=== PATIENT | female | born 1945 | race Caucasian/White ===

== ENCOUNTER → 2019-04-07 | Outpatient (CLI) | payer MEDICARE, OTHER, SELFPAY ==
--- NOTE | 2019-04-07 09:52 | CDU_ITS ---
Reason For Study: carotid stenosis Rt. Velocities/BP Lt. Velocities/BP Prox CCA 112.5/13.4 cm/sec. Prox CCA 111.1/21.7 cm/sec. Mid CCA 78.12/*19.4 cm/sec. Mid CCA 80.1/19.9 cm/sec. Dist CCA 52.6/14.2 cm/sec. Dist CCA 66.6/18.2 cm/sec. Prox ICA 57.0/16.4 cm/sec. Prox ICA 50.1/14.9 cm/sec. Mid ICA 91.8/29.2 cm/sec. Mid ICA 62.2/17.1 cm/sec. Dist ICA 119.7/26.4 cm/sec. Dist ICA 110.1/36.4 cm/sec. Rt. ICA/CCA = 119.7/112.5=1.1. Lt. ICA/CCA = 110.1/111.1=1.0. Prox ECA 55.9/7.6 cm/sec. Prox ECA 69.8/11.6 cm/sec. Rt. Vert. 74.8/19.5 cm/sec. Lt. Vert. 69.8/19.3 cm/sec. Right Extracranial There is no significant atherosclerotic plaque noted in the right common carotid artery. There is intimal thickening but no significant atherosclerotic plaque noted in the right internal carotid artery. The tortuous nature of the right internal carotid artery may result in flow velocities overestimating the degree of stenosis. There is no significant atherosclerotic plaque noted in the right external carotid artery. Antegrade flow is noted in the right vertebral artery. Left Extracranial There is no significant atherosclerotic plaque noted in the left common carotid artery. There is intimal thickening but no significant atherosclerotic plaque noted in the left internal carotid artery. The tortuous nature of the left internal carotid artery may result in flow velocities overestimating the degree of stenosis. There is no significant atherosclerotic plaque noted in the left external carotid artery. Antegrade flow is noted in the left vertebral artery. Procedure Carotid Duplex [id number]. The exam was diagnostic. Exam performed in department. Interpretation Summary Intimal thickening bilateral internal carotids with <50% stenosis. Tortuous bilateral internal carotids <50% stenosis bilateral external carotids Patent and antegrade vertebrals bilaterally with <50% stenosis Ordering Physician: Ruth Denise Referring Physician: Ruth Denise Performed By: Sophia Miller, HOSSEIN, RVT
--- NOTE | 2019-04-07 10:27 | BI_ITS ---
MAMMOGRAPHY - BILATERAL SCREENING REASON FOR EXAM: Female, 73 years old. Routine annual screening examination. PERTINENT HISTORY: Remote left excisional breast biopsies. TECHNIQUE: Digital bilateral breast danisha (3D mammographic acquisition) in the CC and MLO projections. 2-D mediolateral oblique (MLO) and craniocaudad (CC) views of both breasts were obtained. CAD: Full Field Digital Mammography with Computer Added Detection was performed. COMPARISON: Comparison is made with prior outside analog films dated January 19, 2018. FINDINGS: Breast Composition: The breasts are heterogeneously dense, which may obscure small masses. There are no dominant masses or suspicious calcifications. No other significant abnormalities are identified. There has been no significant change since the prior study. BI/SCREEN MAMM (CAD) W/DANISHA BILAT IMPRESSION: Stable bilateral screening mammogram. Yearly follow-up mammogram recommended. (A) ASSESSMENT CATEGORY: BIRADS Category 1: Negative. A letter regarding these results will be sent to the patient by the facility within 30 days. Approximately 10% of breast cancers are not detected by mammography. A normal mammogram should not delay biopsy of a clinically suspicious abnormality. [id number] Electronically Signed: Evangelist Bajwa, at 12:37 EDT , Service support ,
== END | disposition home or self-care (01) ==
PROVIDERS: Family Provider Family Medicine; PCP Family Medicine; Referring Provider Family Medicine; Visit Provider Family Medicine
DX: I65.23 Occlusion and stenosis of bilateral carotid arteries (principal); Z12.31 Encounter for screening mammogram for malignant neoplasm of breast
CPT/HCPCS: 77063; 77067; 93880

== ENCOUNTER → 2019-06-25 08:25 | Outpatient (CLI) | payer MEDICARE, OTHER, SELFPAY ==
[2019-06-25 11:05] LABS: Absolute Lymphocyte Count 2.28 X10^3/uL (0.83-4.51); Absolute Neutrophil Count 3.6 X10^3/uL (2.0-7.7); Basophil# 0.06 X10^3/uL; Basophil% 0.9 % (0-1); Eosinophil# 0.34 X10^3/uL; Eosinophils% 4.9 % (0-5); Hematocrit 44.6 % (37-47); Hemoglobin 14.5 g/dL (12.0-15.0); Lymphocyte # 2.28 X10^3/ul (4.0); Lymphocyte % 32.9 % (19-41); Mean Corp Hgb Conc 32.5 g/dL (32-36); Mean Corpuscular Hgb 30.6 pg (27.0-32.0); Mean Corpuscular Volume 94.1 fL (81-99); Mean Platelet Vol. 10.5 fl (6.2-12.0); Monocyte# 0.63 X10^3/uL; Monocyte% 9.1 % (0-10); NRBC Flagged by Analyzer 0 % (0-5); Neutrophil # 3.59 X10^3/uL (2.7-7.7); Neutrophil % 51.8 % (47-70); Platelet Count 251 K/mm3 (150-450); RBC Distribution Width CV 12.5 % (11.6-14.6); RBC Distribution Width SD 43.1 fl (35.1-43.9); Red Blood Count 4.74 M/mm3 (4.2-5.4); White Blood Count 6.9 K/mm3 (4.4-11.0)
[2019-06-25 11:15] LABS: ALB/GLOB Ratio 1.3 RATIO (0.9-2.4); AST(SGOT) 19 U/L (15-37); Alanine Aminotransfer ALT/SGPT 44 U/L (13-56); Albumin, Serum 4.1 g/dL (3.2-5.0); Alkaline Phosphatase 57 U/L (45-117); Anion Gap 5 (5-15); BUN 16 mg/dL (7-18); BUN/Creat Ratio 14.3 RATIO (10-20); Calcium,Total 8.9 mg/dL (8.5-10.1); Chloride 102 mmol/L (98-107); Cholesterol 200 mg/dL (200); Creatinine, Serum 1.12 mg/dL (0.55-1.02); EST Glomerular Filtration Rate 51 mL/min (>60); Est Glom Filt Rate - Afr Amer 61 mL/min (>60); Globulin 3.1 g/dL (2.2-4.2); Glucose 96 mg/dL (74-106); High Density Lipoprotein 73 mg/dL; Potassium 4.6 mmol/L (3.5-5.1); Protein, Total 7.2 g/dL (6.4-8.2); Sodium Level 134 mmol/L (136-145); Triglycerides 156 mg/dL; Very Low Density Lipoprotein 31 mg/dL (5-40)
== END ==
PROVIDERS: Family Provider Family Medicine; PCP Family Medicine; Visit Provider Family Medicine
DX: N18.3 Chronic kidney disease, stage 3 (moderate) (principal); E78.5 Hyperlipidemia, unspecified
CPT/HCPCS: 36415; 80053; 80061; 85025

== ENCOUNTER → 2019-07-08 08:23 | Outpatient (CLI) | payer MEDICARE, OTHER, SELFPAY ==
--- NOTE | 2019-07-08 08:46 | BD_ITS ---
STUDY: DUAL ENERGY X-RAY ABSORPTIOMETRY / DXA REASON FOR EXAM: Female, 73 years old. 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 COMPARISON: None. FINDINGS: Lumbar Spine (L1-L4): g/cm2 (0.903) / T-score (-2.3) / Z-score (-0.6) Findings are suggestive of osteopenia with a high fracture risk. Left Femur Total: g/cm2 (0.945) / T-score (-0.5) / Z-score (1.2) Left Femoral Neck: g/cm2 (0.917) / T-score (-0.9) / Z-score (1.0) Right Femur Total: g/cm2 (0.965) / T-score (-0.3) / Z-score (1.3) Right Femoral Neck: g/cm2 (0.944) / T-score (-0.7) / Z-score (1.2) BD/Dexa Bone Density Study IMPRESSION: The patient is considered osteopenic as outlined below according to World Donny Organization (WHO) criteria with a high fracture risk. Reference Information: The T-score is the number of standard deviations above or below the standard which is normal for young adults at their peak bone mineral density. The World Health Organization (WHO) interprets the T-scores as follows: Above -1 Normal bone density Between -1 and -2.5 Osteopenia Equal to / or below -2.5 Osteoporosis As a practical clinical guideline, osteopenia may be graded as follows: Mild -1 through -1.5 Moderate -1.6 through -2.0 Severe -2.1 through -2.4 The Z-score is the number of standard deviations above or below age-matched controls. A Z-score of less than -1.5 would be considered abnormal. References: 1. NIH Osteoporosis and Related Bone Diseases http://www.osteo.org 2. International Society for Clinical Densitometry http://www.iscd.org 3. National Osteoporosis Foundation http://www.nof.org Electronically Signed: Evangelist Bajwa, at 15:55 EST , Service support ,
--- NOTE | 2019-07-08 09:15 | RAD_ITS ---
STUDY: X-RAY - PELVIS AND RIGHT HIP REASON FOR EXAM: Female, 73 years old. right hip pain x 1 month, especially when lifting right leg -- NKI TECHNIQUE: 3 views of the pelvis and hip. COMPARISON: None. FINDINGS: There is a non-specific bowel gas pattern. Normal visualized soft tissue structures. There is narrowing with cortical sclerosis and osteophyte formation of the sacroiliac joint consistent with mild degenerative osteoarthritic changes. Normal bilateral superior and inferior pubic rami. Normal pubic symphysis. Normal bilateral ischial tuberosities. Normal visualized femoral head. There is a small osteoarthritic spur formation of the acetabular rim. There is mild articular joint space narrowing of the hip. RAD/HIP, UNI W/ Pelvis 2-3 Views IMPRESSION: Mild degenerative disease as described above. Electronically Signed: Dalila Minor MD at 0:53 EST , Service support ,
== END ==
PROVIDERS: Family Provider Family Medicine; PCP Family Medicine; Visit Provider Family Medicine
DX: M16.11 Unilateral primary osteoarthritis, right hip (principal); Z78.0 Asymptomatic menopausal state
CPT/HCPCS: 73502; 77080

== ENCOUNTER → 2019-12-21 10:30 | Outpatient (CLI) | payer MEDICARE, OTHER, SELFPAY ==
[2019-12-21 13:03] LABS: Anion Gap 7 (5-15); BUN 10 mg/dL (7-18); BUN/Creat Ratio 9.6 RATIO (10-20); Calcium,Total 9.9 mg/dL (8.5-10.1); Chloride 106 mmol/L (98-107); Creatinine, Serum 1.04 mg/dL (0.55-1.02); EST Glomerular Filtration Rate 55 mL/min (>60); Est Glom Filt Rate - Afr Amer 67 mL/min (>60); Glucose 113 mg/dL (74-106); Potassium 4.2 mmol/L (3.5-5.1); Sodium Level 138 mmol/L (136-145)
[2019-12-21 13:04] LABS: Thyroid Stim Hormone (TSH) 0.98 uIU/mL (0.358-3.74)
== END ==
PROVIDERS: PCP Family Medicine; Visit Provider Family Medicine
DX: N18.3 Chronic kidney disease, stage 3 (moderate) (principal); E03.9 Hypothyroidism, unspecified
CPT/HCPCS: 36415; 80048; 84443

== ENCOUNTER → 2020-06-16 08:48 | Outpatient (CLI) | payer MEDICARE, OTHER, SELFPAY ==
[2020-06-16 13:02] LABS: Absolute Lymphocyte Count 2.28 X10^3/uL (0.83-4.51); Absolute Neutrophil Count 4.3 X10^3/uL (2.0-7.7); Basophil# 0.06 X10^3/uL; Basophil% 0.8 % (0-1); Eosinophil# 0.32 X10^3/uL; Eosinophils% 4.1 % (0-5); Hematocrit 41.1 % (37-47); Hemoglobin 13.5 g/dL (12.0-15.0); Lymphocyte # 2.28 X10^3/ul (4.0); Lymphocyte % 29.3 % (19-41); Mean Corp Hgb Conc 32.8 g/dL (32-36); Mean Corpuscular Hgb 31.5 pg (27.0-32.0); Mean Corpuscular Volume 95.8 fL (81-99); Mean Platelet Vol. 10.4 fl (6.2-12.0); Monocyte# 0.81 X10^3/uL; Monocyte% 10.4 % (0-10); NRBC Flagged by Analyzer 0 % (0-5); Neutrophil # 4.27 X10^3/uL (2.7-7.7); Neutrophil % 54.9 % (47-70); Platelet Count 253 K/mm3 (150-450); RBC Distribution Width CV 12.6 % (11.6-14.6); RBC Distribution Width SD 44.3 fl (35.1-43.9); Red Blood Count 4.29 M/mm3 (4.2-5.4); White Blood Count 7.8 K/mm3 (4.4-11.0)
[2020-06-16 13:30] LABS: ALB/GLOB Ratio 1.3 RATIO (0.9-2.4); AST(SGOT) 23 U/L (15-37); Alanine Aminotransfer ALT/SGPT 45 U/L (13-56); Alkaline Phosphatase 64 U/L (45-117); Anion Gap 9 (5-15); BUN 15 mg/dL (7-18); BUN/Creat Ratio 14.2 RATIO (10-20); Chloride 101 mmol/L (98-107); Cholesterol 178 mg/dL (200); Creatinine, Serum 1.06 mg/dL (0.55-1.02); EST Glomerular Filtration Rate 54 mL/min (>60); Est Glom Filt Rate - Afr Amer 65 mL/min (>60); Glucose 86 mg/dL (74-106); High Density Lipoprotein 80 mg/dL; Potassium 4.5 mmol/L (3.5-5.1); Sodium Level 132 mmol/L (136-145); Triglycerides 155 mg/dL; Very Low Density Lipoprotein 31 mg/dL (5-40)
== END ==
PROVIDERS: PCP Family Medicine; Visit Provider Family Medicine
DX: N18.30 Chronic kidney disease, stage 3 unspecified (principal); E78.5 Hyperlipidemia, unspecified; M81.0 Age-related osteoporosis without current pathological fracture
CPT/HCPCS: 36415; 80053; 80061; 82306; 85025

== ENCOUNTER 2020-06-30 17:09 | Emergency (ER) | payer MEDICARE, OTHER, SELFPAY ==
[2020-06-30 17:10] VITALS: BP 158/82; PULSE 87; RESP 16; TEMP 36.8; O2SAT 99; BMI 27.6
--- NOTE | 2020-06-30 17:41 | CT_ITS ---
STUDY: CT BRAIN WITHOUT CONTRAST REASON FOR EXAM: Female, 74 years old. Vertebral RADIATION DOSAGE (If Supplied By Facility): CTDIvol = ( 44.99 ) mGy, DLP = ( 779.24 ) mGycm TECHNIQUE: Transaxial CT imaging of the brain was performed without administration of intravenous contrast material. Individualized dose optimization techniques were used for this CT. COMPARISON: None. FINDINGS: There is no acute bleed or infarct. There are chronic ischemic and atrophic changes. The ventricles are normal in configuration. There is no hydrocephalus. The visualized paranasal sinuses are clear. The mastoid air cells are well aerated. There is no skull fracture. CT/Brain/Head without Contrast IMPRESSION: No acute intracranial abnormality. Chronic ischemic and atrophic changes. Electronically Signed: Abel Richey, at 19:02 EST Tel , Service support ,
--- NOTE | 2020-06-30 17:48 | ED.VISSUMM ---
- ER Visit Summary Date of Service: 06/30/20 Chief Complaint: Dizziness History of Present Illness: The patient is a 74 F history of prior vertigo about 15 years ago. Also has hypothyroidism, high cholesterol and COPD. Patient states that around 1:00 today she got relatively sudden onset of dizziness. Room spinning. Worse with her head moving. Denies headache, chest pain or abdominal pain. She said the dizziness at times is so bad she is nauseated and throws up. Denies any recent falls or head trauma. She is on no blood thinners. He said she was feeling fine prior to the dizziness starting. She denies any arm or leg weakness or numbness. No prior stroke history. Physical Examination: Elderly female no acute distress vital signs stable afebrile. Patient does not look septic or toxic. H EENT exam unremarkable. Pupils are reactive light extra motions are intact. Normal speech. No facial droop. No signs of trauma to her face or scalp. Neck nontender. Lungs clear to auscultation bilaterally. Heart regular rhythm no murmur rate about 85. Chest were nontender. Abdomen soft nontender. Patient moving all 4 extremities. Neurovascular intact. Equal symmetrical 5 and 5 manager family strength. Dorsi plantarflexion intact. Neurologically she is awake and alert. Normal speech. No facial droop. NIH of 0. Fingertip to nose within normal limits bilaterally. She can lift either leg off the bed without any difficulty. No noted ataxia. Normal speech. Her symptoms are made worse with movement of her head. Test Results: CBC normal white count of 10. Hemoglobin 13. Chemistries normal normal BUN creatinine and gap. CAT scan of the brain without contrast read by the radiologist and reviewed by me showed chronic changes but no acute process. No bleed, mass or stroke. Emergency Department Course and Treatment: History and physical are consistent with a benign peripheral vertigo. Patient be treated with IV Zofran for nausea and p.o. Valium. Due to her age screening labs CT will be obtained. Repeat exam patient is feeling better at 1845 and 1940 p.m. She was given a second dose of Zofran. Treatment Plan: Treated for vertigo. Antivert at home. Follow-up. Return if worse. Disposition: Discharge Impression: Acute dizziness secondary to vertigo This note was generated with Kampyleation software. It may contain incorrect words, spelling, and punctuation that were not noted in review of the chart prior to signing ED Disposition - Plan for ED Patient: Referrals: Ruth Denise MD [Primary Care Provider] -
[2020-06-30] MEDS: Ondansetron 4 MG/2 ML Vial IV ×2 (18:20→19:11)
[2020-06-30 18:22] LABS: Absolute Lymphocyte Count 1.29 X10^3/uL (0.83-4.51); Absolute Neutrophil Count 8.2 X10^3/uL (2.0-7.7); Basophil# 0.04 X10^3/uL; Basophil% 0.4 % (0-1); Eosinophil# 0.03 X10^3/uL; Eosinophils% 0.3 % (0-5); Hematocrit 40.7 % (37-47); Hemoglobin 13.8 g/dL (12.0-15.0); Lymphocyte # 1.29 X10^3/ul (4.0); Lymphocyte % 12.7 % (19-41); Mean Corp Hgb Conc 33.9 g/dL (32-36); Mean Corpuscular Hgb 31.8 pg (27.0-32.0); Mean Corpuscular Volume 93.8 fL (81-99); Mean Platelet Vol. 9.8 fl (6.2-12.0); Monocyte# 0.55 X10^3/uL; Monocyte% 5.4 % (0-10); NRBC Flagged by Analyzer 0 % (0-5); Neutrophil # 8.22 X10^3/uL (2.7-7.7); Neutrophil % 80.8 % (47-70); Platelet Count 232 K/mm3 (150-450); RBC Distribution Width CV 12.4 % (11.6-14.6); RBC Distribution Width SD 43.1 fl (35.1-43.9); Red Blood Count 4.34 M/mm3 (4.2-5.4); White Blood Count 10.2 K/mm3 (4.4-11.0)
[2020-06-30] MEDS: diazePAM 5 MG Tablet PO (18:32)
[2020-06-30 19:13] VITALS: BP 147/73; PULSE 88; RESP 12; O2SAT 97
[2020-06-30 19:32] LABS: Anion Gap 8 (5-15); BUN 17 mg/dL (7-18); BUN/Creat Ratio 17.7 RATIO (10-20); Calcium,Total 8.8 mg/dL (8.5-10.1); Chloride 104 mmol/L (98-107); Creatinine, Serum 0.96 mg/dL (0.55-1.02); EST Glomerular Filtration Rate 60 mL/min (>60); Est Glom Filt Rate - Afr Amer 73 mL/min (>60); Glucose 134 mg/dL (74-106); Potassium 4.2 mmol/L (3.5-5.1); Sodium Level 136 mmol/L (136-145)
--- NOTE | 2020-06-30 19:44 | ED.DEP ---
ED Disposition - Plan for ED Patient: Disposition: Home or Assisted Living Instructions: ED Vertigo, Unspecified Prescriptions: Meclizine HCl [Antivert] 25 mg PO 4X/DAY PRN PRN #20 tab PRN Reason: Vertigo Prescription Printed Referrals: Ruth Denise MD [Primary Care Provider] - 3-5 Days if not improving Additional Instructions: Follow-up with your doctor if not improving. Return to the emergency department if feeling worse. Antivert as needed for the dizziness.
== END 2020-06-30 21:07 | disposition home or self-care (01) ==
PROVIDERS: Emergency Provider Emergency Medicine; PCP Family Medicine
DX: R42 Dizziness and giddiness (principal)
CPT/HCPCS: 70450; 80048; 85025; 96374; 96376; 99285; A4216; J2405

== ENCOUNTER → 2020-07-19 09:49 | Outpatient (CLI) | payer MEDICARE, OTHER, SELFPAY ==
[2020-06-30 17:10] VITALS: BMI 27.6
--- NOTE | 2020-07-19 09:52 | BI_ITS ---
MAMMOGRAPHY - BILATERAL SCREENING REASON FOR EXAM: Female, 74 years old. Routine annual screening examination. PERTINENT HISTORY: Non-contributory. Remote left excisional breast biopsy. TECHNIQUE: Digital bilateral breast danisha (3D mammographic acquisition) in the CC and MLO projections. 2-D mediolateral oblique (MLO) and craniocaudad (CC) views of both breasts were obtained. CAD: Full Field Digital Mammography with Computer Added Detection was performed. COMPARISON: Comparison is made with prior study dated 04/07/2019. FINDINGS: Breast Composition: The breasts are heterogeneously dense, which may obscure small masses. There are no dominant masses or suspicious calcifications. No other significant abnormalities are identified. There has been no significant change since the prior study. BI/SCREEN MAMM (CAD) W/DANISHA BILAT IMPRESSION: Stable bilateral screening mammogram. Yearly follow-up mammogram recommended. (A) ASSESSMENT CATEGORY: BIRADS Category 2: Benign. A letter regarding these results will be sent to the patient by the facility within 30 days. Approximately 10% of breast cancers are not detected by mammography. A normal mammogram should not delay biopsy of a clinically suspicious abnormality. [id number] Electronically Signed: Evangelist Bajwa, at 11:16 EST , Service support ,
== END ==
PROVIDERS: PCP Family Medicine; Referring Provider Family Medicine; Visit Provider Family Medicine
DX: Z12.31 Encounter for screening mammogram for malignant neoplasm of breast (principal)
CPT/HCPCS: 77063; 77067

== ENCOUNTER → 2021-05-24 10:11 | Outpatient (CLI) | payer MEDICARE, OTHER, SELFPAY ==
--- NOTE | 2021-05-24 10:14 | RAD_ITS ---
STUDY: X-RAY CHEST REASON FOR EXAM: Female, 75 years old. Technologist Notes cough x 4 weeks, getting worse in the last week COUGH TECHNIQUE: XR Chest 2 Views COMPARISON: Prior comparison studies are not available for review at this time. FINDINGS: There is no demonstrated pleural abnormality. Normal size heart. Normal mediastinum and judy. Normal visualized pulmonary arteries. There is atherosclerotic calcification of the aortic arch with tortuosity. There are diffuse degenerative changes of the visualized thoracic spine. There is degenerative osteoarthritis of the bilateral shoulders. There is no demonstrated abnormality of the visualized soft tissue structures of the upper abdomen. RAD/Chest PA and Lateral IMPRESSION: There are no acute findings. Electronically Signed: Mikel Johnson MD at 16:53 EST , Service support ,
== END ==
PROVIDERS: PCP Family Medicine; Referring Provider Family Medicine; Visit Provider Family Medicine
DX: J40 Bronchitis, not specified as acute or chronic (principal)
CPT/HCPCS: 71046

== ENCOUNTER 2021-06-16 15:32 | Emergency (ER) | payer MEDICARE, OTHER, SELFPAY ==
[2021-06-16 15:33] VITALS: BP 153/93; PULSE 96; RESP 18; TEMP 36.4; O2SAT 96; BMI 25.7
--- NOTE | 2021-06-16 17:14 | EX.ED.VIS.EY ---
HPI History of Present Illness Chief Complaint: Eye Problem Detail of Chief Complaint: Redness left eye since last night. No prior history. Informant: patient Onset/Context/Timing Location: Left Eye Onset: Yesterday Context: Gradual Onset Timing: Continuous Current Severity: Mild Maximum Severity: Mild Associated Symptoms Associated Symptoms - Eyes: Redness; Negative for Burning, Crusting, Drainage, Eyelid swelling, Foreign body sensation, Itching, Matting, Pain and Photophobia History of injury: No Visual correction: Glasses Narrative Narrative: 75-year-old female with left eye redness since last night. No pain. No trauma. She is on no blood thinners. She does not wear contacts. She is never anything like this before. There is no visual change. Treated in urgent care and sent to the emergency department. Prior similar symptoms: No Recent Illness/Hospitalization: No PFSH PFS Medical History Arthritis Bone fracture Breast lump Cataracts, bilateral COPD (chronic obstructive pulmonary disease) Gallstones High cholesterol Hives Osteopenia determined by x-ray Osteoporosis Seasonal allergies Thyroid disease Home Medications aspirin 81 mg chewable tablet 81 mg PO DAILY 01/24/21 [History Last Taken Unknown] calcium acetate 1 cap PO DAILY 01/24/21 [History Last Taken Unknown] cholecalciferol (vitamin D3) 1 tab PO DAILY 01/24/21 [History Last Taken Unknown] levothyroxine 75 mcg tablet 75 mcg PO DAILY 01/24/21 [History Last Taken Unknown] multivitamin 1 tab PO DAILY 01/24/21 [History Last Taken Unknown] omega-3 fatty acids [Fish Oil] 1 cap PO DAILY 01/24/21 [History Last Taken Unknown] simvastatin 20 mg tablet 20 mg PO DAILY 01/24/21 [History Last Taken Unknown] vitamin B complex 1 cap PO DAILY 01/24/21 [History Last Taken Unknown] fprwzgli-lrizlxuzhy-yb glycn-C 500 mg-400 mg capsule cap PO 05/03/21 [History Last Taken Unknown] Allergy/AdvReac Type Severity Reaction Status Date / Time alendronate sodium Allergy Severe JOINT Verified 06/16/21 15:32 MUSCLE PAIN Family History Father Alcoholism Anesthesia complication Angina pectoris Diabetes Myocardial infarction Heart disease Hypertension High cholesterol Brother Alcoholism Mother Angina pectoris Arthritis Myocardial infarction Heart disease Hypertension High cholesterol Grandmother Angina pectoris Myocardial infarction Heart disease Hypertension High cholesterol CVA (cerebral vascular accident) Grandfather Angina pectoris Myocardial infarction Heart disease Hypertension High cholesterol Surgical History H/O dilation and curettage History of appendectomy History of hysterectomy History of tonsillectomy and adenoidectomy Hx of cholecystectomy Social History Smoking Status: Never smoker alcohol intake: never substance use type: does not use frequency: 3-4 times per week ROS ROS ED ROS Narrative Denies. Review of Systems ROS Unobtainable: Denies due to encephalopathy Constitutional Constitutional ED: Denies fever(s) Eyes Eyes: Denies blurry vision, change in vision or diplopia ENT ENT ED: Denies ear pain Cardiovascular Cardiovascular: Denies chest pain Respiratory/Chest Respiratory/Chest: Denies dyspnea Gastrointestinal Gastrointestinal: Denies abdominal pain Genitourinary Genitourinary ED: Denies dysuria Musculoskeletal Musculoskeletal: Denies myalgias Integumentary Denies rash Neurologic Neurologic: Denies headache(s) Psychiatric Psychiatric: Denies depression Endocrine Endocrinology: Denies polyuria Hematologic/Lymphatic Hematologic/Lymphatic: Denies easy bruising Allergic/Immunologic Allergic/Immunologic ED: Denies urticaria EXAM Physical Exam Narrative Exam Narrative: 75-year-old female vital signs stable afebrile. H EENT exam left eye about 50% subconjunctival hemorrhage. Pupils round reactive light his motions are intact. Upper and lower lids are unremarkable. No facial trauma. Lungs are clear. Heart regular rate and rhythm. Otherwise exam unremarkable. Const Vital Signs: 06/16/21 15:33 Temperature 97.6 F L Temperature Source Temporal Pulse Rate 96 Respiratory Rate 18 Blood Pressure 153/93 H Blood Pressure Mean 113 Pulse Ox 96 Oxygen Delivery Method Room Air Positive well nourished and well developed; Negative for obese, cachectic, contractures or unkempt General Appearance ED: well developed and NAD; Negative for unkempt, cachectic or contractures Nutritional Appearance: Negative for cachectic or obese HEENT atraumatic; Negative for trauma or tenderness Nose: external nose normal Eyes Eyes Narrative: Left eye subconjunctival hemorrhage otherwise unremarkable. Neck no lymphadenopathy, supple and no JVD Resp normal respiratory effort, no retractions and clear to auscultation bilaterally Cardio regular rate, regular rhythm, S1 normal heart sound, S2 normal heart sound and no murmurs GI non-tender, non-distended and no masses Auscultation: normoactive bowel sounds Palpation: soft Back/Spine no CVA tenderness Extremity normal to inspection General Extremety ED: Negative for edema or other findings General Extremity: Negative for edema or other findings Neuro oriented x3 Sensorium / Orientation: alert, oriented to person, oriented to place and oriented to time Motor Exam: strength 5/5 throughout Psych Appearance: Negative for unkempt Attitude: No agitated Mood & Affect: Negative for depressed or tearful Skin no wounds Lesions: no lesions Rashes: no rashes MDM MDM MDM Narrative Medical decision making narrative: 75-year-old with left subconjunctival hemorrhage. Otherwise exam unremarkable. She and I discussed what these are and how they occur and that this will progressively resolve. Discharge Plan Triage Chief Complaint: Eye Problem ED Provider: Dickson Valentine Dx/Rx/DC Orders Clinical Impression: Subconjunctival hemorrhage Instructions: ED Subconjunctival Hemorrhage Prescriptions: No Action levothyroxine 75 mcg tablet 75 mcg PO DAILY RF: 0 simvastatin 20 mg tablet 20 mg PO DAILY RF: 0 multivitamin Tablet 1 tab PO DAILY RF: 0 aspirin [Aspirin Childrens] 81 mg tablet,chewable 81 mg PO DAILY RF: 0 omega-3 fatty acids [Fish Oil] 1 cap PO DAILY RF: 0 calcium acetate 1 cap PO DAILY RF: 0 cholecalciferol (vitamin D3) 1 tab PO DAILY RF: 0 vitamin B complex 1 cap PO DAILY RF: 0 fgcwqesm-ugvbhbnpvx-zt glycn-C 500-400 mg capsule PO RF: 0 Primary Care Provider: Ruth Denise Referrals: Ruth Denise MD [Primary Care Provider] - As Needed Activity Restrictions/Additional Instructions: The redness is due to a small blood vessel on the surface of your eye that bled. This could actually get worse before it gets better but it progressively get better. It may take 1 to several weeks to totally resolve. It will not affect her vision. Disposition Disposition: Home, Self Care
== END 2021-06-16 17:30 | disposition home or self-care (01) ==
PROVIDERS: Emergency Provider Emergency Medicine; PCP Family Medicine
DX: H11.32 Conjunctival hemorrhage, left eye (principal)
CPT/HCPCS: 99282

== ENCOUNTER → 2021-07-02 08:03 | Outpatient (CLI) | payer MEDICARE, OTHER, SELFPAY ==
[2021-07-02 10:02] LABS: Basophil# 0.09 X10^3/uL; Eosinophil# 0.41 X10^3/uL; Eosinophils% 4.6 % (0-5); Hematocrit 43.5 % (37-47); Hemoglobin 14.7 g/dL (12.0-15.0); Lymphocyte % 28.9 % (19-41); Mean Corp Hgb Conc 33.8 g/dL (32-36); Mean Corpuscular Hgb 31.1 pg (27.0-32.0); Mean Corpuscular Volume 92.2 fL (81-99); Mean Platelet Vol. 9.9 fl (6.2-12.0); Monocyte# 0.86 X10^3/uL; Monocyte% 9.6 % (0-10); NRBC Flagged by Analyzer 0 % (0-5); Neutrophil # 5.02 X10^3/uL (2.7-7.7); Neutrophil % 55.7 % (47-70); Platelet Count 267 K/mm3 (150-450); RBC Distribution Width CV 12.3 % (11.6-14.6); RBC Distribution Width SD 41.9 fl (35.1-43.9); Red Blood Count 4.72 M/mm3 (4.2-5.4)
[2021-07-02 10:15] LABS: Vitamin D,25 Hydroxy 62.2 ng/mL
[2021-07-02 10:31] LABS: ALB/GLOB Ratio 1.3 RATIO (0.9-2.4); AST(SGOT) 20 U/L (15-37); Alanine Aminotransfer ALT/SGPT 53 U/L (13-56); Albumin, Serum 4.2 g/dL (3.2-5.0); Alkaline Phosphatase 76 U/L (45-117); Anion Gap 6 (5-15); BUN 20 mg/dL (7-18); BUN/Creat Ratio 17.7 RATIO (10-20); Calcium,Total 9.4 mg/dL (8.5-10.1); Chloride 102 mmol/L (98-107); Cholesterol 180 mg/dL (200); Creatinine, Serum 1.13 mg/dL (0.55-1.02); EST Glomerular Filtration Rate 50 mL/min (>60); Est Glom Filt Rate - Afr Amer 60 mL/min (>60); Globulin 3.2 g/dL (2.2-4.2); Glucose 119 mg/dL (74-106); High Density Lipoprotein 74 mg/dL; Potassium 3.9 mmol/L (3.5-5.1); Protein, Total 7.4 g/dL (6.4-8.2); Sodium Level 133 mmol/L (136-145); Triglycerides 179 mg/dL; Very Low Density Lipoprotein 36 mg/dL (5-40)
== END ==
PROVIDERS: PCP Family Medicine; Referring Provider Family Medicine; Visit Provider Family Medicine
DX: M81.0 Age-related osteoporosis without current pathological fracture (principal); E78.5 Hyperlipidemia, unspecified; E55.9 Vitamin D deficiency, unspecified
CPT/HCPCS: 36415; 80053; 80061; 82306; 85025

== ENCOUNTER → 2021-07-10 09:30 | Outpatient (CLI) | payer MEDICARE, OTHER, SELFPAY ==
--- NOTE | 2021-07-10 09:36 | BD_ITS ---
STUDY: DUAL ENERGY X-RAY ABSORPTIOMETRY / DXA REASON FOR EXAM: Female, 75 years old. x -- schedule after June 13, 2021 please TECHNIQUE: Bone Mineral Density (BMD) measurements of lumbar spine and bilateral hips were obtained. COMPARISON: Comparison is made with prior study dated 07/08/2019. FINDINGS: Lumbar Spine (L1-L4): g/cm2 (0.793) / T-score (-2.3) / Z-score (0.1) Findings are suggestive of osteopenia with a high fracture risk. Left Femur Total: g/cm2 (0.854) / T-score (-0.7) / Z-score (1.1) Left Femoral Neck: g/cm2 (0.730) / T-score (-1.1) / Z-score (1.0) Right Femur Total: g/cm2 (0.897) / T-score (-0.4) / Z-score (1.5) Right Femoral Neck: g/cm2 (0.801) / T-score (-0.4) / Z-score (1.7) The T-Scores on the most recent prior examination were: Lumbar Spine (L1-L4): There has been improvement of bone density since the previous examination. Left Femur Total: which represents a worsening of 3%. Right Femur Total: which represents a worsening of 0.4%. BD/Dexa Bone Density Study IMPRESSION: The patient is considered osteopenic as outlined below according to World Donny Organization (WHO) criteria with a high fracture risk. There has been worsening of bone density since the previous examination. Reference Information: The T-score is the number of standard deviations above or below the standard which is normal for young adults at their peak bone mineral density. The World Health Organization (WHO) interprets the T-scores as follows: Above -1 Normal bone density Between -1 and -2.5 Osteopenia Equal to / or below -2.5 Osteoporosis As a practical clinical guideline, osteopenia may be graded as follows: Mild -1 through -1.5 Moderate -1.6 through -2.0 Severe -2.1 through -2.4 The Z-score is the number of standard deviations above or below age-matched controls. A Z-score of less than -1.5 would be considered abnormal. References: 1. NIH Osteoporosis and Related Bone Diseases www osteo.org 2. International Society for Clinical Densitometry www iscd.org 3. National Osteoporosis Foundation www nof.org Electronically Signed: Evangelist Bajwa MD at 15:01 EST , Service support ,
== END ==
PROVIDERS: PCP Family Medicine; Referring Provider Internal Medicine Endocrinology, Diabetes & Metabolism; Visit Provider Internal Medicine Endocrinology, Diabetes & Metabolism
DX: M81.0 Age-related osteoporosis without current pathological fracture (principal); M85.80 Other specified disorders of bone density and structure, unspecified site
CPT/HCPCS: 77080

== ENCOUNTER 2021-08-29 12:34 | Outpatient (CLI) | payer MEDICARE, OTHER, SELFPAY ==
--- NOTE | 2021-08-29 12:36 | BI_ITS ---
MAMMOGRAPHY - BILATERAL SCREENING REASON FOR EXAM: Female, 75 years old. Routine annual screening examination. PERTINENT HISTORY: Non-contributory. TECHNIQUE: Digital bilateral breast danisha (3D mammographic acquisition) in the CC and MLO projections. 2-D mediolateral oblique (MLO) and craniocaudad (CC) views of both breasts were obtained. CAD: Full Field Digital Mammography with Computer Added Detection was performed. COMPARISON: Comparison is made with prior study dated 07/19/2020 and 04/07/2019. FINDINGS: Breast Composition: The breasts are heterogeneously dense, which may obscure small masses. There are no dominant masses or suspicious calcifications. No other significant abnormalities are identified. There has been no significant change since the prior study. BI/SCRN MAMM (CAD)W/DANISHA BILAT IMPRESSION: Stable bilateral screening mammogram. Yearly follow-up mammogram recommended. (A) ASSESSMENT CATEGORY: BIRADS Category 1: Negative. A letter regarding these results will be sent to the patient by the facility within 30 days. Approximately 10% of breast cancers are not detected by mammography. A normal mammogram should not delay biopsy of a clinically suspicious abnormality. [id number] Electronically Signed: Evangelist Bajwa MD at 13:26 EST ,
== END 2021-08-29 23:59 | disposition home or self-care (01) ==
LOC: OPBI 12:34
PROVIDERS: PCP Family Medicine; Referring Provider Family Medicine; Visit Provider Family Medicine
DX: Z12.31 Encounter for screening mammogram for malignant neoplasm of breast (principal)
CPT/HCPCS: 77063; 77067

== ENCOUNTER 2021-10-11 08:22 | Outpatient (CLI) | payer MEDICARE, OTHER, SELFPAY ==
--- NOTE | 2021-10-11 13:20 | PFTCOMP ---
COMPLETE PULMONARY FUNCTION TEST INTERPRETATION Brief HPI: Patient is a 75 year old female, currently under the care of Dr. Denise, who presents to [facility] for complete pulmonary function tests secondary to diagnosis of dyspnea. Respiratory therapist reports good effort and reproducible results. Interpretation: Forced expiration spirometry shows no large airways obstructive ventilatory defect with an FEV1 of 82% predicted. There is no significant bronchodilator response by strict ATS criteria. Spirograms are of good quality and plateau normally. The respiratory flow volume loop shows a normal pattern. Lung volumes by body plethysmography show a normal total lung capacity at 5.62 L, 113% predicted. FRC and RV are elevated out of proportion. Lung volume measurements are consistent with hyperinflation and air-trapping. Diffusion capacity by carbon monoxide is normal at 84% predicted. The airway resistance is normal. No previous studies are available for comparison Impression: Grossly normal pulmonary function testing
== END 2021-10-11 23:59 | disposition home or self-care (01) ==
LOC: PSN 08:24
PROVIDERS: PCP Family Medicine; Visit Provider Family Medicine
DX: R05.3 Chronic cough (principal)
CPT/HCPCS: 94060; 94726; 94729

== ENCOUNTER → 2021-12-17 | Outpatient (CLI) | payer MEDICARE, OTHER, SELFPAY | END | disposition home or self-care (01) | LOC: LABSPEC 12:38 | PROVIDERS: PCP Family Medicine; Referring Provider Family Medicine; Visit Provider Family Medicine | DX: R19.7 Diarrhea, unspecified (principal) | CPT/HCPCS: 83630; 87177; 87209; 87493; 87506 ==

== ENCOUNTER → 2022-02-08 | Outpatient (CLI) | payer MEDICARE, OTHER, SELFPAY ==
[2022-02-08 11:20] LABS: Absolute Lymphocyte Count 2.14 X10^3/uL (0.83-4.51); Absolute Neutrophil Count 4.7 X10^3/uL (2.0-7.7); Basophil# 0.06 X10^3/uL; Basophil% 0.8 % (0-1); Eosinophil# 0.31 X10^3/uL; Eosinophils% 3.9 % (0-5); Hematocrit 41.7 % (37-47); Hemoglobin 13.9 g/dL (12.0-15.0); Lymphocyte # 2.14 X10^3/ul (0.83-4.51); Mean Corp Hgb Conc 33.3 g/dL (32-36); Mean Corpuscular Hgb 31.2 pg (27.0-32.0); Mean Corpuscular Volume 93.5 fL (81-99); Mean Platelet Vol. 10.5 fl (6.2-12.0); Monocyte# 0.71 X10^3/uL; Monocyte% 8.9 % (0-10); NRBC Flagged by Analyzer 0 % (0-5); Neutrophil # 4.67 X10^3/uL (2.7-7.7); Neutrophil % 58.8 % (47-70); Platelet Count 213 K/mm3 (150-450); RBC Distribution Width CV 12.8 % (11.6-14.6); RBC Distribution Width SD 43.9 fl (35.1-43.9); Red Blood Count 4.46 M/mm3 (4.2-5.4); White Blood Count 7.9 K/mm3 (4.4-11.0)
[2022-02-08 11:30] LABS: Erythrocyte Sedimentation Rate 1 mm/hr (0-30)
[2022-02-08 11:55] LABS: ALB/GLOB Ratio 1.3 RATIO (0.9-2.4); AST(SGOT) 16 U/L (15-37); Alanine Aminotransfer ALT/SGPT 37 U/L (13-56); Alkaline Phosphatase 78 U/L (45-117); Anion Gap 6 (5-15); BUN 18 mg/dL (7-18); BUN/Creat Ratio 17.8 RATIO (10-20); CRP < 2.90 mg/L (0.0-3.0); Calcium,Total 9.4 mg/dL (8.5-10.1); Chloride 110 mmol/L (98-107); Creatinine, Serum 1.01 mg/dL (0.55-1.02); EST Glomerular Filtration Rate 57 mL/min (>60); Est Glom Filt Rate - Afr Amer 69 mL/min (>60); Globulin 3.1 g/dL (2.2-4.2); Glucose 97 mg/dL (74-106); LDH 205 U/L (84-246); Potassium 4.1 mmol/L (3.5-5.1); Protein, Total 7.1 g/dL (6.4-8.2); Sodium Level 142 mmol/L (136-145)
[2022-02-11 13:07] LABS: Anti-Centromere B Ab <0.2 AI (0.0-0.9); Anti-Chromatin <0.2 AI (0.0-0.9); Anti-Jo <0.2 AI (0.0-0.9); Anti-Scleroderma-70 AB <0.2 AI (0.0-0.9); RNP Ab 0.2 AI (0.0-0.9); SJOGREN'S Anti-SS-A test < 0.2 AI (0.0-0.9); SJOGREN'S Anti-SS-B test < 0.2 AI (0.0-0.9); Smith Ab <0.2 AI (0.0-0.9)
[2022-02-11 14:12] LABS: Anti-dsDNA Ab <1 IU/mL (0-9)
[2022-02-11 18:07] LABS: Cytoplasmic Ab (C-ANCA) <1:20 titer (Neg:<1:20); Endomysial Antibody IgA Negative (Negative)
[2022-02-11 21:00] LABS: Immunoglobulin A 35 mg/dL (64-422); Perinuclear Ab (P-ANCA) <1:20 titer (Neg:<1:20); t-Transglutaminase IgA <2 U/mL (0-3)
== END | disposition home or self-care (01) ==
LOC: LAB 10:41
PROVIDERS: PCP Family Medicine; Visit Provider Nurse Practitioner Adult Health
DX: R19.7 Diarrhea, unspecified (principal)
CPT/HCPCS: 36415; 80053; 82784; 83516; 83615; 85025; 85652; 86140; 86225; 86235; 86255; 86256

== ENCOUNTER → 2022-02-11 | Outpatient (CLI) | payer MEDICARE, OTHER, SELFPAY ==
[2022-02-14 07:34] LABS: Calprotectin, Stool 27 ug/g (0-120)
== END | disposition home or self-care (01) ==
PROVIDERS: PCP Family Medicine; Referring Provider Nurse Practitioner Adult Health; Visit Provider Nurse Practitioner Adult Health
DX: R19.7 Diarrhea, unspecified (principal)
CPT/HCPCS: 83993

== ENCOUNTER → 2022-02-13 | Outpatient (CLI) | payer MEDICARE, OTHER, SELFPAY ==
--- NOTE | 2022-02-13 06:45 | CT_ITS ---
INDICATION: LLQ abd pain, chronic diarrhea -- oral and iv EXAMINATION: CT ABDOMEN AND PELVIS WITH CONTRAST - CT Abdomen And Pelvis W/ Contrast Injection TECHNIQUE: Helically acquired images were obtained of the abdomen and pelvis following IV contrast. A radiation dose optimization technique was used for this scan. IV Contrast dosage and agent: 100 mL of ISOVUE-370. Oral contrast: Redicat. COMPARISON: None. FINDINGS: LOWER CHEST: Lung bases are clear. No cardiomegaly or pericardial effusion. LIVER: Homogeneous. No focal mass. GALLBLADDER AND BILIARY TREE: The gallbladder is surgically absent. No intra- or extrahepatic biliary ductal dilation. PANCREAS: No focal cystic or solid mass. SPLEEN: Normal size without focal cystic or solid mass. ADRENAL GLANDS: No nodules. KIDNEYS AND URETERS: Normal renal size and position. No hydronephrosis. PERITONEUM: No ascites or free air. No other fluid collection. BOWEL: Small type I hiatus hernia is visualized. The stomach is otherwise unremarkable. Scattered areas of small and large bowel wall thickening visualized most prominent in the rectosigmoid where there is scattered diverticular disease visualized but no evidence of acute diverticulitis is seen. No evidence of significant bowel distention, no evidence of obstruction. Would recommend clinical correlation for inflammatory bowel disease. The appendix is not visualized correlate for appendectomy. LYMPH NODES: No enlarged mesenteric or retroperitoneal lymph nodes. VESSELS: Aorta is non-dilated. URINARY BLADDER: Unremarkable. REPRODUCTIVE ORGANS: No pelvic masses. ABDOMINAL WALL: No discrete abdominal or pelvic wall hernia. BONES: No lytic or blastic abnormality. Degenerative bone changes seen. CT/Abdomen/Pelvis WITH Contrast IMPRESSION: Scattered areas of bowel wall thickening, no evidence of prominent masses, no evidence of significant surrounding inflammatory changes would recommend clinical correlation for inflammatory bowel disease. Electronically Signed: Axel Baig MD at 7:54 EDT Reading Location ID and State: [facility] / [place] Tel , Service support ,
== END | disposition home or self-care (01) ==
PROVIDERS: PCP Family Medicine; Referring Provider Nurse Practitioner Adult Health; Visit Provider Nurse Practitioner Adult Health
DX: R10.32 Left lower quadrant pain (principal); Z90.49 Acquired absence of other specified parts of digestive tract
CPT/HCPCS: 74177; Q9967

== ENCOUNTER → 2022-02-25 | Outpatient (CLI) | payer MEDICARE, OTHER, SELFPAY | END | disposition home or self-care (01) | PROVIDERS: PCP Family Medicine; Referring Provider Nurse Practitioner Adult Health; Visit Provider Nurse Practitioner Adult Health | DX: K63.9 Disease of intestine, unspecified (principal); R19.7 Diarrhea, unspecified | CPT/HCPCS: 36415; 83516 ==

== ENCOUNTER 2022-03-25 10:21 | Day surgery (SDC) | payer MEDICARE, OTHER, SELFPAY ==
--- NOTE | 2022-03-25 10:37 | PCM.HP.BLA ---
History and Physical Date of Admission: 03/25/22 JAVIER FONTAINE, is a 76 F who presents to the office today for diarrhea; had an acute illness but now back to baseline bowel pattern Diarrhea began in late November 2021 after having 3 rounds of antibiotics for other issues. She went to urgent care on 12/11/2021 for the diarrhea, treated symptomatically. No fever or chills. Didn't feel ill. No nausea or vomiting. Initially she had diarrhea every 2 hours, at night too. Less frequent now, but still 3-4 BMs per day and some BMs at night too. Stool now is soft formed. Has 3 BMs in the morning before she leaves the house, then again after eating. Not a BM after every meal. Rarely urgent BM now. Had a couple of accidents during this time. No melena or hematochezia. Occas blood from hemorrhoid. LLQ pain if she eats roughage, applying heat helps. 12/17/2021 C. difficile negative, enteric pathogen panel negative, stool lactoferrin positive Has had bowel issues which began many years ago, and gradually worsened. No treatment for them. Doesn't tolerate the foods she really likes such as fruits, vegetables, whole grains, dairy--gets bloat, gas, cramping, increased frequency of stools which are soft formed. She recently switched to Lactaid milk. Colonoscopy in her 50s, ColoGuard tests since then have been negative. No prior EGD. Omeprazole was prescribed after pulmonary function test. Had bronchitis all winter, treated with prednisone. Then cough returned. Cough better with omeprazole, and the PPI also helped her acid reflux. She is no longer taking omeprazole, prefers to avoid meds if possible. Had heartburn after a glass of V8 last week, typically spicy or tomato-based foods bother her, then has heartburn and acid reflux. No dysphagia. Comorbidities include allergies, COPD, coronary artery stenosis hypothyroidism, hyperlipidemia, psoriasis, osteoporosis Past surgical history includes tonsillectomy, cholecystectomy, hysterectomy, appendectomy ROS Const Constitutional: No fatigue ENT ENT: No difficulty swallowing Gastro GI: Positive for abdominal pain, bloating, change in bowel habits, diarrhea, heartburn and excessive flatus; No belching, change in stool character, coffee ground emesis, constipation, cramping, difficulty swallowing, feeling full early, incontinent of stools, Vomiting blood/hematemesis, Blood in stool, loose stools, Black,tarry stools, nausea/dyspepsia, pain with swallowing, vomiting or other Musc Musculoskeletal: Positive for stiffness and Arthritis; No joint pain Skin Skin: No yellowing of the eye or itchy eyes Neuro Neurology: Positive for tremor(s) Psych Psychiatric: No anxiety and No depression Endo Endocrine: No fatigue Aller/Imm Allergy/Immunologic: No itchy eyes Chip/Lymp Hematologic/Lymphatic: Positive for easy bruising; No easy bleeding Exam Const General: cooperative, healthy appearing and well developed HENCT Head: normal to inspection Eyes General: appearance normal, both eyes and all related structures Resp Effort & Inspection: normal respiratory effort GI Inspection: normal to inspection Skin General: no jaundice Neuro General: patient alert, patient awake and patient oriented x3 Speech: speech normal Gait: normal gait Extrem General: pedal edema present Psych Mood: congruent mood Affect: normal affect Speech and Movement: speech and movement normal Quality Reporting Tobacco Screening ([facility] 138) Smoking Status: Never smoker Assessment and Plan Assessment and Plan (1) Diarrhea: ?Status:?Acute (2) LLQ abdominal pain: ?Status:?Acute ?Plan: 76 yr old female with chronic frequent soft BMs (including some nocturnal), cramping, bloating, LLQ abd pain. She had an acute diarrheal illness but reports she is back to her baseline.? Fortunately she tested negative for C. difficile and enteric pathogens.? Her father from C. difficile colitis infection.? Her DDx includes IBS, IBD, SCAD, celiac disease. She is very agreeable to checking blood tests today and scheduling CT scan. We will also get stool calprotectin. Her stool lactoferrin was positive. CT abd pel w/ oral and IV contrast is ordered to evaluate for diverticular disease, bowel wall thickening. She really wants to avoid colonoscopy, we did discuss the benefits of doing a colonoscopy but held off on scheduling it at this time.? Follow-up 6 to 8 weeks.? I will contact her with results in the meantime. ? ? ? Orders: Orders Comprehensive Metabolic Profil Today R19.7 - Diarrhea, unspecified ? CRP Today R19.7 - Diarrhea, unspecified ? LDH Today R19.7 - Diarrhea, unspecified ? CBC W/Diff, Automated Today J30.2 - Other seasonal allergic rhinitis, R19.7 - Diarrhea, unspecified ? Erythrocyte Sed Rate Today R19.7 - Diarrhea, unspecified ? YAN Comprehensive Panel Today R19.7 - Diarrhea, unspecified ? Calprotectin, Stool Today R19.7 - Diarrhea, unspecified ? ANCA Today R19.7 - Diarrhea, unspecified ? Celiac Disease Profile Today R19.7 - Diarrhea, unspecified ? Abdomen/Pelvis WITH Contrast Today R10.32 - Left lower quadrant pain ? I have re-examined the patient. There are no clinical changes since date of exam.
[2022-03-25 10:47] VITALS: BP 161/76; PULSE 79; RESP 16; TEMP 36.3; O2SAT 99; BMI 24.2
[2022-03-25] MEDS: Lactated Ringers 1,000 ML 15 ML IV (10:58)
[2022-03-25 12:02] VITALS: BP 116/56; BP 161/76; PULSE 69; RESP 16; TEMP 36.3; O2SAT 100
--- NOTE | 2022-03-25 12:04 | OP.EGD_ITS ---
Patient Name: Donavon Valdez Procedure Date: 03/25/2022 11:19 AM Date of : 1945 Age: 76 Procedure: Upper GI endoscopy Indications: Epigastric abdominal pain, Dysphagia Providers: Douglas Arnett DO Referring MD: Douglas Arnett DO Medicines: Monitored Anesthesia Care Patient Profile: This is a 76 year old female. Refer to note in patient chart for documentation of history and physical. Patient has symptoms of chronic epigastric abdominal pain, chronic dysphagia and chronic nausea. Complications: No immediate complications. Procedure: Pre-Anesthesia Assessment: - Prior to the procedure, a History and Physical was performed, and patient medications and allergies were reviewed. The risks and benefits of the procedure and the sedation options and risks were discussed with the patient. All questions were answered and informed consent was obtained. Patient identification and proposed procedure were verified by the physician in the pre-procedure area. Mental Status Examination: alert and oriented. Airway Examination: normal oropharyngeal airway and neck mobility. Respiratory Examination: clear to auscultation. CV Examination: normal. Prophylactic Antibiotics: The patient does not require prophylactic antibiotics. Prior Anticoagulants: The patient has taken no previous anticoagulant or antiplatelet agents. ASA Grade Assessment: II - A patient with mild systemic disease. After reviewing the risks and benefits, the patient was deemed in satisfactory condition to undergo the procedure. The anesthesia plan was to use monitored anesthesia care (MAC). Immediately prior to administration of medications, the patient was re-assessed for adequacy to receive sedatives. The heart rate, respiratory rate, oxygen saturations, blood pressure, adequacy of pulmonary ventilation, and response to care were monitored throughout the procedure. The physical status of the patient was re-assessed after the procedure. After obtaining informed consent, the endoscope was passed under direct vision. Throughout the procedure, the patient's blood pressure, pulse, and oxygen saturations were monitored continuously. The pediatric colonoscope was introduced through the mouth, and advanced to the second part of duodenum. The upper GI endoscopy was accomplished without difficulty. The patient tolerated the procedure well. Scope In: 11:28:04 AM Scope Out: 11:36:20 AM Total Procedure Duration Time 0 hours 8 minutes 16 seconds Findings: A moderate Schatzki ring was found in the lower third of the esophagus. A guidewire was placed and the scope was withdrawn. Dilation was performed with a Savary dilator with no resistance at 45 Fr. The dilation site was examined and showed moderate improvement in luminal narrowing. Estimated blood loss was minimal. LA Grade A (one or more mucosal breaks less than 5 mm, not extending between tops of 2 mucosal folds) esophagitis with no bleeding was found 37 to 39 cm from the incisors. Biopsies were taken with a cold forceps for histology. Verification of patient identification for the specimen was done. Estimated blood loss was minimal. A medium-sized hiatal hernia was present. The first portion of the duodenum was normal. Biopsies were taken with a cold forceps for histology. Verification of patient identification for the specimen was done. Estimated blood loss was minimal. Impression: - Moderate Schatzki ring. Dilated. - LA Grade A reflux esophagitis. Biopsied. - Medium-sized hiatal hernia. - Normal first portion of the duodenum. Biopsied. Recommendation: - Written discharge instructions were provided to the patient. - The signs and symptoms of potential delayed complications were discussed with the patient. - Patient has a contact number available for emergencies. - Return to normal activities tomorrow. - Resume previous diet. - Continue present medications. - Await pathology results. Procedure Code(s): --- Professional --- 81654, Esophagogastroduodenoscopy, flexible, transoral; with insertion of guide wire followed by passage of dilator(s) through esophagus over guide wire 69603, 59,51, Esophagogastroduodenoscopy, flexible, transoral; with biopsy, single or multiple CPT copyright 2017 [employer]. All rights reserved. The codes documented in this report are preliminary and upon lap maker review may be revised to meet current compliance requirements. Douglas Arnett DO 03/25/2022 12:03:58 PM This report has been signed electronically. Number of Addenda: 0 Note Initiated On: 03/25/2022 11:19 AM
[2022-03-25 12:05] VITALS: BP 113/61; BP 161/76; PULSE 69; RESP 16; O2SAT 99
--- NOTE | 2022-03-25 12:05 | OP.CCLET_ITS ---
03/25/2022 Ruth Denise [address] [place] [address] Re : Upper GI endoscopy procedure for Donavon Valdez Dear Dr. Denise This procedure was performed on Friday, March 25, 2022. My impressions and recommendations are as follows: Impressions : - Moderate Schatzki ring. Dilated. - LA Grade A reflux esophagitis. Biopsied. - Medium-sized hiatal hernia. - Normal first portion of the duodenum. Biopsied. Recommendations : - Written discharge instructions were provided to the patient. - The signs and symptoms of potential delayed complications were discussed with the patient. - Patient has a contact number available for emergencies. - Return to normal activities tomorrow. - Resume previous diet. - Continue present medications. - Await pathology results. My findings are described in the full procedure note, which is enclosed. If I can be of further assistance, please feel free to contact me at . Sincerely, Douglas Arnett, 03/25/2022 12:03:58 PM This report has been signed electronically.
[2022-03-25 12:10] VITALS: BP 115/60; BP 161/76; PULSE 71; RESP 16; O2SAT 98
--- NOTE | 2022-03-25 12:10 | OP.COLON_ITS ---
Patient Name: Donavon Valdez Procedure Date: 03/25/2022 11:36 AM Date of : 1945 Age: 76 Procedure: Colonoscopy Indications: Abdominal pain, Clinically significant diarrhea of unexplained origin Providers: Douglas Arnett DO Referring MD: Douglas Arnett DO Medicines: Monitored Anesthesia Care Patient Profile: This is a 76 year old female. Refer to note in patient chart for documentation of history and physical. Patient has symptoms of chronic epigastric abdominal pain, chronic dysphagia and chronic nausea. Last Colonoscopy: date unknown. Unable to locate last colonoscopy report. Complications: No immediate complications. Procedure: Pre-Anesthesia Assessment: - Prior to the procedure, a History and Physical was performed, and patient medications and allergies were reviewed. The risks and benefits of the procedure and the sedation options and risks were discussed with the patient. All questions were answered and informed consent was obtained. Patient identification and proposed procedure were verified by the physician in the pre-procedure area. Mental Status Examination: alert and oriented. Airway Examination: normal oropharyngeal airway and neck mobility. Respiratory Examination: clear to auscultation. CV Examination: normal. Prophylactic Antibiotics: The patient does not require prophylactic antibiotics. Prior Anticoagulants: The patient has taken no previous anticoagulant or antiplatelet agents. ASA Grade Assessment: II - A patient with mild systemic disease. After reviewing the risks and benefits, the patient was deemed in satisfactory condition to undergo the procedure. The anesthesia plan was to use monitored anesthesia care (MAC). Immediately prior to administration of medications, the patient was re-assessed for adequacy to receive sedatives. The heart rate, respiratory rate, oxygen saturations, blood pressure, adequacy of pulmonary ventilation, and response to care were monitored throughout the procedure. The physical status of the patient was re-assessed after the procedure. After I obtained informed consent, the scope was passed under direct vision. Throughout the procedure, the patient's blood pressure, pulse, and oxygen saturations were monitored continuously. The Colonoscope was introduced through the anus and advanced to the terminal ileum. The colonoscopy was performed without difficulty. The patient tolerated the procedure well. The quality of the bowel preparation was good. Scope In: 11:39:25 AM Scope Withdrawal Time 0 hours 10 minutes 41 seconds Scope Out: 11:56:39 AM Total Procedure Duration Time 0 hours 17 minutes 14 seconds Findings: The perianal and digital rectal examinations were normal. Multiple small and large-mouthed diverticula were found in the recto-sigmoid colon, sigmoid colon and descending colon. An area of mildly congested mucosa was found in the sigmoid colon, in the transverse colon and in the ascending colon. Biopsies were taken with a cold forceps for histology. Verification of patient identification for the specimen was done. Estimated blood loss was minimal. The terminal ileum appeared normal. Impression: - Diverticulosis in the recto-sigmoid colon, in the sigmoid colon and in the descending colon. - Congested mucosa in the sigmoid colon, in the transverse colon and in the ascending colon. Biopsied. - The examined portion of the ileum was normal. Recommendation: - Discharge patient to home. - Resume previous diet. - Continue present medications. - Await pathology results. - Repeat colonoscopy is recommended. The colonoscopy date will be determined after pathology results from today's exam become available for review. Procedure Code(s): --- Professional --- 23735, Colonoscopy, flexible; with biopsy, single or multiple CPT copyright 2017 [employer]. All rights reserved. The codes documented in this report are preliminary and upon sales engineering manager review may be revised to meet current compliance requirements. Douglas Arnett DO 03/25/2022 12:10:26 PM This report has been signed electronically. Number of Addenda: 0 Note Initiated On: 03/25/2022 11:36 AM
--- NOTE | 2022-03-25 12:12 | OP.CCLET_ITS ---
03/25/2022 Ruth Denise [address] [place] [address] Re : Colonoscopy procedure for Donavon Valdez Dear Dr. Denise This procedure was performed on Friday, March 25, 2022. My impressions and recommendations are as follows: Impressions : - Diverticulosis in the recto-sigmoid colon, in the sigmoid colon and in the descending colon. - Congested mucosa in the sigmoid colon, in the transverse colon and in the ascending colon. Biopsied. - The examined portion of the ileum was normal. Recommendations : - Discharge patient to home. - Resume previous diet. - Continue present medications. - Await pathology results. - Repeat colonoscopy is recommended. The colonoscopy date will be determined after pathology results from today's exam become available for review. My findings are described in the full procedure note, which is enclosed. If I can be of further assistance, please feel free to contact me at . Sincerely, Douglas Arnett, 03/25/2022 12:10:26 PM This report has been signed electronically.
[2022-03-25 12:15] VITALS: BP 161/76; PULSE 69; RESP 16; TEMP 36.2; O2SAT 99
[2022-03-25 12:42] VITALS: BP 161/76
--- NOTE | 2022-03-26 | ESO_PTH ---
PATIENT: JAVIER FONTAINE LOC: [facility] U#:[id number] AGE/SX: 76/F ROOM: RE03/25/[address]: Dr. Douglas Arnett DO : 1945 BED: DIS: 03/25/2022 SPEC #: [id number] RECD: 03/26/22 08:56 STATUS: SERGIO ROJELIOKee #: [id number] JOSAFAT: 03/26/22 00:[address]: Douglas Arnett DEPT: SURGICAL PATHOLOGY RECD BY: Abiola Blake ENTERED: 03/26/22 08:57 SP TYPE: ESOPH BX PEDRO DR: Dr. Ruth Denise MD Tissues: A - Esophagus, NOS B - Duodenum, NOS C - Esophageal mucous membrane D - COLON BIOPSY Procedures: Special Stain Group II Surgery Specimen Level IV Alcian Blue/PAS (control) HEADER OPERATION: Colonoscopy, EGD ([facility] [place]), biopsy PRE-OP DIAGNOSIS: Diarrhea, LLQ abdominal pain TISSUE SUBMITTED: A ? Distal esophagus biopsy, B ? Duodenum biopsy, C ? Random esophagus biopsy, D ? Random colonic biopsy MICROSCOPIC DIAGNOSIS A. Distal esophagus, biopsy: Fragments of gastroesophageal mucosa with chronic inflammation, congestion and hemorrhage. Intestinal metaplasia (goblet cell metaplasia) not identified. See comment. B. Duodenum, biopsy: Fragments of duodenal mucosa with mild Janet gland hyperplasia. C. Esophagus, random biopsy: Fragments of benign squamous mucosa. D. Colon, random biopsy: Fragments of colonic mucosa, no pathologic diagnosis. SJ:bob 03/27/2022 COMMENT A. Alcian blue/PAS stain with matched control is used in the evaluation of the specimen. MICROSCOPIC DESCRIPTION Slides are reviewed. GROSS DESCRIPTION A - Received in fixative is one container labeled with the patient's name and designated distal esophagus biopsy. The specimen consists of multiple irregular fragments of light bray soft tissue that in aggregate measure 1 x 0.5 x 0.1 cm. The specimen is totally submitted in one cassette. B - Received in fixative is one container labeled with the patient's name and designated duodenum biopsy. The specimen consists of two irregular fragments of light bray soft tissue that in aggregate measure 0.6 x 0.3 x 0.1 cm. The specimen is totally submitted in one cassette. C - Received in fixative is one container labeled with the patient's name and designated random esophagus biopsy. The specimen consists of multiple irregular fragments of light bray soft tissue that in aggregate measure 1 x 0.6 x 0.1 cm. The specimen is totally submitted in one cassette. D - Received in fixative is one container labeled with the patient's name and designated random colon. The specimen consists of multiple irregular fragments of light bray soft tissue that in aggregate measure 2 x 0.4 x 0.1 cm. The specimen is totally submitted in one cassette. / SJ:rg 03/26/2022 TC:3 CPT: 94621 x4, 42909
== END 2022-03-25 12:44 | disposition home or self-care (01) ==
LOC: EN 10:21 → AC 10:22
PROVIDERS: PCP Family Medicine; Referring Provider Family Medicine; Visit Provider Internal Medicine Gastroenterology
PROC: 0DJD8ZZ Inspection of Lower Intestinal Tract, Via Natural or Artificial Opening Endoscopic (ICD-10-PCS; CPT 45378; principal; 2022-03-25 11:10)
DX: K21.00 Gastro-esophageal reflux disease with esophagitis, without bleeding (principal); K44.9 Diaphragmatic hernia without obstruction or gangrene; K22.2 Esophageal obstruction; K63.89 Other specified diseases of intestine; K31.89 Other diseases of stomach and duodenum; K57.30 Diverticulosis of large intestine without perforation or abscess without bleeding; E03.9 Hypothyroidism, unspecified; E78.00 Pure hypercholesterolemia, unspecified; Z79.899 Other long term (current) drug therapy; Z86.16 Personal history of COVID-19
CPT/HCPCS: 43248; 43239; 45380; 87506; 88305; 88313; J7120; J2405

== ENCOUNTER → 2022-06-17 | Outpatient (CLI) | payer MEDICARE, OTHER, SELFPAY ==
[2022-06-17 10:09] LABS: Absolute Lymphocyte Count 2.11 X10^3/uL (0.83-4.51); Absolute Neutrophil Count 4.4 X10^3/uL (2.0-7.7); Basophil# 0.05 X10^3/uL; Basophil% 0.6 % (0-1); Eosinophil# 0.46 X10^3/uL; Eosinophils% 5.9 % (0-5); Hematocrit 44.5 % (37-47); Hemoglobin 14.6 g/dL (12.0-15.0); Lymphocyte # 2.11 X10^3/ul (0.83-4.51); Lymphocyte % 27.1 % (19-41); Mean Corp Hgb Conc 32.8 g/dL (32-36); Mean Corpuscular Hgb 31.2 pg (27.0-32.0); Mean Corpuscular Volume 95.1 fL (81-99); Mean Platelet Vol. 10.8 fl (6.2-12.0); Monocyte# 0.73 X10^3/uL; Monocyte% 9.4 % (0-10); NRBC Flagged by Analyzer 0 % (0-5); Neutrophil # 4.41 X10^3/uL (2.7-7.7); Neutrophil % 56.6 % (47-70); Platelet Count 237 K/mm3 (150-450); RBC Distribution Width CV 13.1 % (11.6-14.6); RBC Distribution Width SD 45.9 fl (35.1-43.9); Red Blood Count 4.68 M/mm3 (4.2-5.4); White Blood Count 7.8 K/mm3 (4.4-11.0)
[2022-06-17 15:24] LABS: ALB/GLOB Ratio 1.5 RATIO (0.9-2.4); AST(SGOT) 17 U/L (15-37); Alanine Aminotransfer ALT/SGPT 42 U/L (13-56); Albumin, Serum 4.3 g/dL (3.2-5.0); Alkaline Phosphatase 82 U/L (45-117); Anion Gap 8 (5-15); BUN 16 mg/dL (7-18); Calcium,Total 9.4 mg/dL (8.5-10.1); Chloride 104 mmol/L (98-107); Cholesterol 201 mg/dL (200); EST Glomerular Filtration Rate 57 mL/min (>60); Est Glom Filt Rate - Afr Amer 69 mL/min (>60); Globulin 2.8 g/dL (2.2-4.2); Glucose 102 mg/dL (74-106); High Density Lipoprotein 89 mg/dL; Potassium 4.2 mmol/L (3.5-5.1); Protein, Total 7.1 g/dL (6.4-8.2); Sodium Level 137 mmol/L (136-145); Thyroid Stim Hormone (TSH) 0.95 uIU/mL (0.358-3.74); Triglycerides 167 mg/dL; Very Low Density Lipoprotein 33 mg/dL (5-40)
== END | disposition home or self-care (01) ==
LOC: MTLAB 08:01
PROVIDERS: PCP Family Medicine; Referring Provider Family Medicine; Visit Provider Family Medicine
DX: E03.9 Hypothyroidism, unspecified (principal); N18.30 Chronic kidney disease, stage 3 unspecified; E78.5 Hyperlipidemia, unspecified
CPT/HCPCS: 36415; 80053; 80061; 84443; 85025

== ENCOUNTER → 2022-11-12 | Outpatient (CLI) | payer MEDICARE, OTHER, SELFPAY ==
--- NOTE | 2022-11-12 16:25 | CT_ITS ---
INDICATION: CHRONIC COUGH EXAMINATION: CT CHEST WITHOUT CONTRAST - CT Chest W/O Contrast Injection TECHNIQUE: Helically acquired images were obtained of the chest. A radiation dose optimization technique was used for this scan. IV Contrast dosage and agent: None. COMPARISON: PA and lateral chest September 24, 2021. FINDINGS: LUNGS, PLEURA AND LARGE AIRWAYS: There is minor bibasilar interstitial thickening.. Minor pleural-parenchymal scarring in right apex. No pleural effusion or pneumothorax. Small calcified granuloma in the right lower lobe.. THYROID: No thyroid lesions. HEART AND PERICARDIUM: Heart size is normal. No pericardial effusion. CORONARY ARTERIES: Coronary artery calcification VESSELS: Thoracic aorta is not dilated. MEDIASTINUM AND EMRE: No mediastinal or hilar adenopathy. Esophagus is unremarkable. Small hiatal hernia is noted. UPPER ABDOMEN: No acute pathology. BONES: No suspicious lytic or blastic abnormality. CT/Chest without Contrast IMPRESSION: Minor chronic interstitial thickening at the lung bases and right apical pleural-parenchymal scarring. Old granulomatous nodule in the right lower lobe. No acute cardiopulmonary pathology Electronically Signed: Jose Guadalupe Willard MD at 18:41 EDT ,
== END | disposition home or self-care (01) ==
LOC: CT 16:21
PROVIDERS: PCP Family Medicine; Referring Provider Family Medicine; Visit Provider Family Medicine
DX: R06.00 Dyspnea, unspecified (principal); R05.3 Chronic cough
CPT/HCPCS: 71250

== ENCOUNTER → 2022-12-17 | Outpatient (CLI) | payer MEDICARE, OTHER, SELFPAY ==
[2022-12-17 12:32] LABS: Absolute Lymphocyte Count 2.28 X10^3/uL (0.83-4.51); Absolute Neutrophil Count 4.1 X10^3/uL (2.0-7.7); Basophil# 0.08 X10^3/uL; Eosinophil# 0.55 X10^3/uL; Eosinophils% 7.1 % (0-5); Hematocrit 43.2 % (37-47); Lymphocyte # 2.28 X10^3/ul (0.83-4.51); Lymphocyte % 29.4 % (19-41); Mean Corp Hgb Conc 32.4 g/dL (32-36); Mean Corpuscular Volume 95.6 fL (81-99); Mean Platelet Vol. 11.2 fl (6.2-12.0); Monocyte# 0.76 X10^3/uL; Monocyte% 9.8 % (0-10); NRBC Flagged by Analyzer 0 % (0-5); Neutrophil # 4.05 X10^3/uL (2.7-7.7); Neutrophil % 52.3 % (47-70); Platelet Count 216 K/mm3 (150-450); RBC Distribution Width CV 12.9 % (11.6-14.6); RBC Distribution Width SD 45.4 fl (35.1-43.9); Red Blood Count 4.52 M/mm3 (4.2-5.4); White Blood Count 7.8 K/mm3 (4.4-11.0)
[2022-12-17 13:00] LABS: ALB/GLOB Ratio 1.3 RATIO (0.9-2.4); AST(SGOT) 21 U/L (15-37); Alanine Aminotransfer ALT/SGPT 49 U/L (13-56); Albumin, Serum 3.9 g/dL (3.2-5.0); Alkaline Phosphatase 72 U/L (45-117); Anion Gap 7 (5-15); BUN 18 mg/dL (7-18); BUN/Creat Ratio 17.3 RATIO (10-20); Calcium,Total 9.6 mg/dL (8.5-10.1); Chloride 106 mmol/L (98-107); Cholesterol 180 mg/dL (200); Creatinine, Serum 1.04 mg/dL (0.55-1.02); EST Glomerular Filtration Rate 55 mL/min (>60); Est Glom Filt Rate - Afr Amer 66 mL/min (>60); Glucose 98 mg/dL (74-106); High Density Lipoprotein 66 mg/dL; Potassium 4.4 mmol/L (3.5-5.1); Protein, Total 6.9 g/dL (6.4-8.2); Sodium Level 137 mmol/L (136-145); Thyroid Stim Hormone (TSH) 1.35 uIU/mL (0.358-3.74); Triglycerides 170 mg/dL; Very Low Density Lipoprotein 34 mg/dL (5-40)
== END | disposition home or self-care (01) ==
LOC: BFHLAB 08:30
PROVIDERS: PCP Family Medicine; Referring Provider Family Medicine; Visit Provider Family Medicine
DX: E03.9 Hypothyroidism, unspecified (principal); N18.30 Chronic kidney disease, stage 3 unspecified; E78.5 Hyperlipidemia, unspecified
CPT/HCPCS: 36415; 80053; 80061; 84443; 85025

== ENCOUNTER → 2024-12-22 | Outpatient (CLI) | payer MEDICARE, OTHER, SELFPAY ==
[2024-12-22 09:15] LABS: Absolute Lymphocyte Count 2.86 X10^3/uL (0.83-4.51); Absolute Neutrophil Count 4.8 X10^3/uL (2.0-7.7); Basophil# 0.09 X10^3/uL; Eosinophil# 0.71 X10^3/uL; Eosinophils% 7.5 % (0-5); Hematocrit 42.9 % (37-47); Hemoglobin 14.6 g/dL (12.0-15.0); Lymphocyte # 2.86 X10^3/ul (0.83-4.51); Lymphocyte % 30.4 % (19-41); Mean Corpuscular Hgb 31.5 pg (27.0-32.0); Mean Corpuscular Volume 92.7 fL (81-99); Mean Platelet Vol. 9.8 fl (6.2-12.0); Monocyte# 0.92 X10^3/uL; Monocyte% 9.8 % (0-10); NRBC Flagged by Analyzer 0 % (0-5); Neutrophil # 4.78 X10^3/uL (2.7-7.7); Neutrophil % 50.8 % (47-70); Platelet Count 244 K/mm3 (150-450); RBC Distribution Width CV 12.9 % (11.6-14.6); RBC Distribution Width SD 43.9 fl (35.1-43.9); Red Blood Count 4.63 M/mm3 (4.2-5.4); White Blood Count 9.4 K/mm3 (4.4-11.0)
--- OUTSIDE RECORDS SUMMARY | 2024-12-22 09:40 | XMS RPT_ITS | CCD ---
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 Ruth Denise Primary Care Provider [phone] Dr. Ruth Denise Referring Provider [phone] EDUARDO Young Attending Provider Dr. Mario Gonzalez Attending Provider Dr. Ruth Denise Other Provider Dr. Gavin Farias Attending Provider EDUARDO Bynum Attending Provider Dr. Ruth Denise Primary Care Provider [phone] Dr. Ruth Denise Referring Provider [phone] Vinicius CHAPA, EDUARD-C Cami Cabral Attending Provider [phone] Dr. Douglas Arnett Attending Provider [phone] Dr. Douglas Arnett Other Provider [phone] Ruth Denise Primary Care Provider [phone] Dr. Ruth Denise Referring Provider Dr. Douglas Arnett Attending Provider [phone] Dr. Douglas Arnett Other Provider [phone] Vinicius CHAPA, EDUARD-C Cami Cabral Attending Provider [phone] Unavailable Primary Care Provider Dr. Ruth Montes Primary Care Provider [phone] Ruth Denise Referring Provider EDUARDO Bynum Attending Provider [phone] Xin CHAPA, BURKE Corley Attending Provider Camelia Ruth Primary Care Unavailable Win Bynum Attending Unavailable Camelia, Ruth Referring Unavailable Win Bynum Attending Unavailable Camelia, Ruth Referring Unavailable Camelia, Ruth Primary Care Unavailable Mario Gonzalez Attending Unavailable Camelia, Ruth Primary Care Unavailable Abel Young Attending Unavailable Camelia, Ruth Referring Unavailable Miedgirish, Ruth Primary Care Unavailable Ruth Denise Attending Unavailable Camelia, Ruth Referring Unavailable Camelia, Ruth Primary Care Unavailable Ruth Denise Attending Unavailable Camelia, Ruth Referring Unavailable Miedel, Ruth Primary Care Unavailable Xin CHAPA, Erin Corley Attending Unavailtejal e Camelia, Ruth Referring Unavailable Miedel, Ruth Primary Care Unavailable Unavailable Primary Care Provider Unavailetjal corley Allergies Allergy Classification Reported Allergen(s) Allergy Type Date of Onset Reaction(s) Facility (11 sources) Alendronate Drug Allergy 1 Other: See Comments [facility] (3 sources) Meperidine; Translations: [MEPERIDINE] Drug Allergy 3 Intolerance [facility] (1 source) Alendronate; Translations: [ALENDRONATE] Drug Allergy 1 [facility] Repository (1 source) Alendronate Drug Allergy 3 [facility] Repository Medications Current Medications Medication Drug Class(es) Dates Sig (Normalized) Sig (Original) [id number] 200 actuat albuterol 0.09 mg/actuat metered dose inhaler (4 sources) beta2-Adrenergic Agonist Start: 10-11-2022 albuterol HFA (PROVENTIL HFA, VENTOLIN HFA) 90 mcg/actuation inhaler Inhale as instructed. 10/11/2022 Active Start: 10-11-2022 take 1 puff(s) by in halation every six hours Albuterol Sulfate Active 2 PUFF INHALATION EVERY 6 HOURS October 11, 2022 12:00am Comment on above: Inhale as instructed . azithromycin 250 mg oral tablet (4 sources) Macrolide Antimicrobial Start: 10-11-2022 azithromycin (ZITHROMAX) 250 mg tablet 10/11/2022 Active Start: 10-11-2022 Azithromycin A ctive 0 PO .COMPLEX 6 October 11, 2022 12:00am For 250 mg dose pack: take 500 mg today (day 1), then 250 mg for 4 days (days 2-5) PO benzonatate 100 mg oral capsule (4 sources) Non-narcotic Antitussive Start: 10-11-2022 benzonatate (TESSALON PERLE) 100 mg capsule Take by mouth. 10/11/2022 Active Comment on above: Take by mouth. calcium acetate (9 sources) Start: 01-24-2021 take 1 capsule by mouth once daily calcium acetate Active 1 CAP PO DAILY January 24, 2021 9:03am Start: 01-24-2021 take 1 capsule by mouth once d aily calcium acetate Active 1 CAP PO DAILY January 23, 2021 11:00pm Start: 01-24-2021 take 1 capsule by mouth once d aily calcium acetate Active 1 CAP PO DAILY January 24, 2021 12:00am Cholecalciferol (9 sources) Vitamin D Start: 01-24-2021 take 1 tablet by mouth once daily cholecalciferol (vitamin D3) Active 1 TABLET PO DAILY January 24, 2021 9:04am Start: 01-24-2021 take 1 tablet by john th once daily cholecalciferol (vitamin D3) Active 1 TABLET PO DAILY January 23, 2021 11:00pm Start: 01-24-2021 take 1 tablet by john th once daily cholecalciferol (vitamin D3) Active 1 TABLET PO DAILY January 24, 2021 12:00am dexamethasone 6 mg oral tablet (4 sources) Corticosteroid Start: 08-30-2022 End: 10-11-2022 dexAMETHasone (DECADRON) 6 mg tablet 08/30/2022 Active Jfmrwvvt-Buattzfaxe-Vg Glycn-C (9 sources) Start: 05-03-2021 Glucosam-Condr oitin-Ga Glycn-C Active CAP PO May 03, 2021 8:46am Start: 05-03-2021 take 1 capsule by mo [facility] once daily Btjovzid-Ajqfrnptsm-Dh Glycn-C Active 1 CAP PO DAILY May 02, 2021 11:00pm Start: 05-03-2021 take 1 capsule by mo uth once daily Rjodopko-Omtaltxzvo-Lr Glycn-C Active 1 CAP PO DAILY May 03, 2021 12:00am Start: 05-03-2021 Glucosam-Condr oitin-Ga Glycn-C Active CAP PO May 03, 2021 12:00am levothyroxine sodium 0.075 mg oral tablet (11 sources) l-Thyroxine Start: 01-24-2021 levothyroxine (SYNTHROID) 75 mcg tablet 08/27/2022 Active Multivitamin preparation (9 sources) Start: 01-24-2021 take 1 tablet by mouth once daily Multivitamin Active 1 TABLET PO DAILY January 24, 2021 9:02am Start: 01-24-2021 take 1 tablet by john once daily Multivitamin Active 1 TABLET PO DAILY January 23, 2021 11:00pm Start: 01-24-2021 take 1 tablet by john once daily Multivitamin Active 1 TABLET PO DAILY January 24, 2021 12:00am omega-3 fatty acids (Fish Oil) (9 sources) Start: 01-24-2021 take 1 capsule by mouth once daily omega-3 fatty acids (Fish Oil) Active 1 CAP PO DAILY January 24, 2021 9:03am Start: 01-24-2021 take 1 capsule by mouth once d aily omega-3 fatty acids (Fish Oil) Active 1 CAP PO DAILY January 23, 2021 11:00pm Start: 01-24-2021 take 1 capsule by mouth once d aily omega-3 fatty acids (Fish Oil) Active 1 CAP PO DAILY January 24, 2021 12:00am prednisoLONE acetate 10 mg/ml ophthalmic suspension (2 sources) Corticosteroid Start: 08-30-2022 Prednisolone Acetate Active 1 DRP OPHTHALMIC DAILY August 30, 2022 1:00am predniSONE 20 mg oral tablet (1 source) Start: 10-16-2022 End: 10-20-2022 take 2 tablets by mouth once daily at mealtime predniSONE (DELTASONE) 20 mg tablet Take 2 tablets by mouth once daily for 4 days. Take daily with food. 8 tablet 0 10/16/2022 10/20/2022 Active Comment on above: Take 2 tablets by mo ut once daily for 4 days. Take daily with food. simvastatin 20 mg oral tablet (11 sources) HMG-CoA Reductase Inhibitor Start: 01-24-2021 simvastatin (ZOCOR) 20 mg tablet Take 20 mg by mouth. 01/24/2021 Active Comment on above: Take 20 mg by mouth. Vitamin B Complex (9 sources) Start: 01-24-2021 take 1 capsule by mouth once daily vitamin B complex Active 1 CAP PO DAILY January 24, 2021 9:04am Start: 01-24-2021 take 1 capsule by mouth once d aily vitamin B complex Active 1 CAP PO DAILY January 23, 2021 11:00pm Start: 01-24-2021 take 1 capsule by mouth once d aily vitamin B complex Active 1 CAP PO DAILY January 24, 2021 12:00am VITAMIN B COMPLEX ORAL (2 sources) Start: 01-24-2021 VITAMIN B COMP GREGG ORAL Take by mouth. 01/24/2021 Active Start: 01-24-2021 VITAMIN B COMP GREGG ORAL Take by mouth. 0 01/24/2021 Active Comment on above: Take by mouth. Completed/Discontinued Medications Medication Drug Class(es) Dates Sig (Normalized) Sig (Original) amoxicillin 875 mg / clavulanate 125 mg oral tablet (9 sources) Penicillin-class Antibacterial Start: 09-24-2021 End: 12-11-2021 take 1 tablet by mouth twice daily Amoxicillin-Pot Clavulanate Discontinued 1 TABLET PO TWICE A DAY September 24, 2021 12:00am December 11, 2021 11:12am aspirin 81 mg chewable tablet (9 sources) Platelet Aggregation Inhibitor, Nonsteroidal Anti-inflammatory Drug Start: 01-24-2021 End: 02-08-2022 take 1 tablet by mouth once daily Aspirin (Aspirin Childrens) 81 mg tablet,chewable Discontinued 81 MG PO DAILY January 24, 2021 12:00am February 08, 2022 10:13am meclizine hydrochloride 25 mg oral tablet (9 sources) Antiemetic Start: 06-30-2020 End: 01-24-2021 take 25 mg by mouth four times daily as needed Meclizine Discontinued 25 MG PO 4 TIMES DAILY NEEDED June 30, 2020 1:00am January 24, 2021 9:02am Problems Active Problems Problem Classification Problem Date Documented Da te Episodic/Chronic Abdominal hernia (4 sources) Hiatal hernia; Translations: [Diaphragmatic hernia without obstruction or gangrene] Episodic Abdominal pain (13 sources) Left lower quadrant pain; Translations: [Left lower quadrant pain] Episodic Acute bronchitis (12 sources) Acute bronchitis; Translations: [Acute bronchitis, unspecified] Episodic Anal and rectal conditions (4 sources) Rectal prolapse; Translations: [Rectal prolapse] Episodic Cataract (9 sources) Bilateral cataracts; Translations: [Unspecified cataract] 01-24-2021 Chronic Chronic obstructive pulmonary disease and bronchiectasis (9 sources) Chronic obstructive lung disease; Translations: [Chronic obstructive pulmonary disease, unspecified] 01-24-2021 Chronic Chronic obstructive pulmonary disease and bronchiectasis (1 source) Bronchitis; Translations: [Bronchitis, not specified as acute or chronic] Episodic Disorders of lipid metabolism (9 sources) Hypercholesterolemia; Translations: [Pure hypercholesterolemia, unspecified] 01-24-2021 Chronic Immunity disorders (5 sources) Immunoglobulin A deficiency; 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]] 02-22-2022 Chronic Immunizations and screening for infectious disease (10 sources) Patient encounter status; Translations: [Encounter for screening for COVID-19] Episodic Malaise and fatigue (1 source) Other fatigue; Translations: [Other fatigue] Onset: 06-16-2023 Episodic Noninfectious gastroenteritis (15 sources) Gastroenteritis; Translations: [Noninfective gastroenteritis and colitis, unspecified] Episodic Osteoarthritis (9 sources) Arthritis; Translations: [Unspecified osteoarthritis, unspecified site] 01-24-2021 Chronic Osteoporosis (9 sources) Osteoporosis; Translations: [Age-related osteoporosis without current pathological fracture] 01-24-2021 Chronic Other bone disease and musculoskeletal deformities (9 sources) X-ray evidence of poor mineralization; Translations: [Other specified disorders of bone density and structure, unspecified site] 05-10-2021 Episodic Other endocrine disorders (3 sources) Hypopituitarism; Translations: [HYPOPITUITARISM] Onset: 08-26-2017 Other eye disorders (9 sources) Subconjunctival hemorrhage; Translations: [Conjunctival hemorrhage, unspecified eye] 06-24-2021 Episodic Other gastrointestinal disorders (8 sources) Diarrhea; Translations: [Diarrhea, unspecified] 02-08-2022 Episodic Other gastrointestinal disorders (10 sources) Diarrhea, unspecified; Translations: [Diarrhea] Episodic Other gastrointestinal disorders (5 sources) Disorder of colon; Translations: [Disease of intestine, unspecified] 02-22-2022 Episodic Other lower respiratory disease (5 sources) Cough; Translations: [Acute cough] Episodic Other lower respiratory disease (1 source) Cough; Translations: [Acute cough] 10-16-2022 Episodic Other upper respiratory disease (9 sources) Seasonal allergy; Translations: [Other seasonal allergic rhinitis] 01-24-2021 Chronic Other upper respiratory infections (9 sources) Acute upper respiratory infection; Translations: [Acute upper respiratory infection, unspecified] 05-18-2021 Episodic Thyroid disorders (1 source) Hypothyroidism, unspecified; Translations: [Hypothyroidism, unspecified] Onset: 12-23-2022 Chronic Thyroid disorders (9 sources) Disorder of thyroid gland; Translations: [Disorder of thyroid, unspecified] 01-24-2021 Episodic Unclassified (1 source) Unknown / UNK(Unknown) Onset: 06-25-2017 Unclassified (1 source) Acute cough; Translations: [Acute cough] Onset: 10-16-2022 Unclassified (1 source) Cough, unspecified; Translations: [Cough, unspecified] Onset: 07-10-2023 Viral infection (11 sources) Disease caused by 2019-nCoV; Translations: [COVID-19] 05-18-2021 Episodic Past or Other Problems Problem Classification Problem Date Documented Da te Episodic/Chronic Other lower respiratory disease (1 source) Dyspnea, unspecified; Translations: [Dyspnea, unspecified] Onset: 11-15-2022 Episodic Unclassified (3 sources) Abnormal findings on diagnostic imaging of skull and head, not elsewhere classified; Translations: [ABNORMAL FINDINGS ON DX IMAGING OF SKULL AND HEAD, NEC] Onset: 06-25-2017 Episodic Unclassified (1 source) R93.0 ABN FINDING ON DX IMAGING Onset: 06-25-2017 Results Test Name Value Interpretation Reference Range Facility Urgent Care Visit Reporton 1 2-28-2023 Urgent Care Visit Report [facility] [address], [address] [place] [address] OFFICE VISIT Date of Service: 07/10/23 MR#: [id number] Acct: [id number] Name: DONAVON FONTAINE Rep #: [id number] : 1945 Provider: EDUARDO Patten Age/Sex: 77/F [place]: [facility] [place] Status: Signed Intake Vital Signs 06/16/23 10:26 07/10/23 10:43 Height 5 ft 5 in Weight: 161 lb BMI 26.8 BP 170/84 H 138/86 H Blood Pressure Location Rt brachial Lt brachial Position Sitting Sitting Respiration 14 12 Pulse 96 86 Pulse Source Monitor Monitor Temp 98.8 F 98.3 F Temp Source Temporal Temporal Pulse Oximetry (%) 94 97 Oxygen Delivery Method room air room air Intake Visit Reasons: COUGH, CONGESTION Chief Complaint: persistent productive cough Allergies alendronate sodium Allergy (Severe, Verified 07/10/23 10:43) JOINT MUSCLE PAIN PFSH Medical History Acute bronchitis, unspecified Arthritis Bone fracture Breast lump Carotid artery stenosis Cataracts, bilateral Chronic renal disease, stage 3, moderately decreased glomerular filtration rate (GFR) between 30-59 mL/min/1.73 square meter COPD (chronic obstructive pulmonary disease) Diarrhea Encounter for screening for COVID-19 Gallstones Generalized psoriasis High cholesterol History of cataract Hives Non-smoker Osteopenia determined by x-ray Osteoporosis Psoriasis Rash Seasonal allergies Syncope Thyroid disease Wears glasses Surgical History H/O dilation and curettage History of appendectomy History of hysterectomy History of tonsillectomy and adenoidectomy Hx of cholecystectomy Family History Father Alcoholism Anesthesia complication Angina pectoris Diabetes Myocardial infarction Heart disease Hypertension High cholesterol Brother Alcoholism Mother Angina pectoris Arthritis Myocardial infarction Heart disease Hypertension High cholesterol Grandmother Angina pectoris Myocardial infarction Heart disease Hypertension High cholesterol CVA (cerebral vascular accident) Grandfather Angina pectoris Myocardial infarction Heart disease Hypertension High cholesterol Social History Smoking Status: Never smoker alcohol intake: never substance use type: does not use frequency: 3-4 times per week HPI HPI Chief Complaint: persistent productive cough Details: DONAVON FONTAINE, is a 77 F who presents to the office today for complaint of cough for the past 4 to 5 days. Patient states trying multiple sgzp-int-lcpuwiy medications with little to no relief. She denies fever, chills, sweats. No nausea, vomiting and diarrhea. No hemoptysis, shortness of breath or difficulty breathing. No other associated symptoms or alleviating/aggravating factors. ROS Const Constitutional: No other (6 system ROS completed with pertinent findings in the HPI otherwise normal.) Exam Const General: cooperative and well developed HENMT Head: normal to inspection and atraumatic Ears: hearing grossly normal bilaterally Nose: nasal discharge clear Face and sinus: normal facial exam Mouth: oral mucosae normal Throat: abnormal tonsil bilaterally hypertrophy 1+ Resp Effort Inspection: normal respiratory effort and no audible wheezes Auscultation: Bilateral: Clear to Auscultation Cardio Palpation: normal PMI Rate: regular rate Rhythm: regular rhythm Neuro General: patient alert and CN's II-XI intact bilaterally Psych Appearance: grossly normal Mental Status: mental status grossly normal Results POC SARS AG POC SARS AG Negative Last Edit by Dipti Rhoades on 07/10/23 10:53 POC FLU A B Office Flu A B Negative FLU A B Last Edit by Dipti Rhoades on 07/10/23 10:54 Coding Level of Care Code Off vis,est,level 3 Diagnoses Acute upper respiratory infection J06.9 Assessment and Plan Assessment and Plan (1) Acute upper respiratory infection: Status: Acute Orders: Orders POC FLU A B Today R05.9 - Cough, unspecified POC Rapid SARS Antigen Today Plan Patient tested negative for COVID and flu in the office today. Encouraged to get plenty of rest, drink lots of clear liquids, and use Tylenol or Ibuprofen (unless contraindicated) for fever and comfort. Patient also educated on other symptomatic management techniques. To be seen in 7-10 days if no improvement; sooner if worsening of symptoms. Patient advised of potential red flags and when appropriate to report to the ED. Patient verbalized understanding and agreement with all the above. 07/10/23 1253 Date (more content not included)... Normal [facility] Chest PA and Lateralon 06-27 Chest PA and Lateral [facility] [address] [place] [address] Chest PA and Lateral MR#: [id number] Acct: [id number] Name: AYLAKALIAriaDONAVON MAZAKOTA Rep #: [id number] : 1945 F 77 From: Hardeep mujica DO PCP: Dr. Ruth Denise MD Status: DEP AMB Study: Chest PA and Lateral Date of Exam: 06/27/23 Exam# [id number] Ordering Dr: Ruth Denise MD [id number] EXAM: XR CHEST, 2 VIEWS CLINICAL INDICATION: COUGH X1 WK TECHNIQUE: Frontal and lateral views of the chest. COMPARISON: 09/24/2021 FINDINGS: LUNGS AND PLEURAL SPACES: No significant abnormality. No consolidation or edema. No pneumothorax. No effusion. HEART: No significant abnormality. Cardiac silhouette not enlarged. MEDIASTINUM: Central airways and mediastinal contour are unremarkable. BONES/JOINTS: No significant abnormality. No acute fracture. SOFT TISSUES: No significant abnormality. RAD/Chest PA and Lateral IMPRESSION: No radiographic evidence of acute cardiopulmonary disease. Electronically Signed: Hardeep Nelson DO at 16:33 EST , CC: Dr. Ruth Denise MD Needle Board Repairer: Signed Normal [facility] Urgent Care Visit Reporton 1 08-17-2022 Urgent Care Visit Report [facility] [address], [address] [place] [address] OFFICE VISIT Date of Service: 06/16/23 MR#: [id number] Acct: [id number] Name: DONAVON FONTAINE Rep #: [id number] : 1945 Provider: EDUARDO Jack Age/Sex: 77/F Location[place] [facility] [place] [place] Status: Signed Intake Vital Signs 10/11/22 07:52 06/16/23 10:26 Height 5 ft 5 in 5 ft 5 in Weight: 161 lb BMI 26.8 BP 170/84 H Blood Pressure Location Rt brachial Position Sitting Respiration 14 Pulse 96 Pulse Source Monitor Temp 98.8 F Temp Source Temporal Pulse Oximetry (%) 94 Oxygen Delivery Method room air Intake Visit Reasons: CONCERN FOR URI Chief Complaint: persistent productive cough Allergies alendronate sodium Allergy (Severe, Verified 06/16/23 10:26) JOINT MUSCLE PAIN PFSH Medical History Acute bronchitis, unspecified Arthritis Bone fracture Breast lump Carotid artery stenosis Cataracts, bilateral Chronic renal disease, stage 3, moderately decreased glomerular filtration rate (GFR) between 30-59 mL/min/1.73 square meter COPD (chronic obstructive pulmonary disease) Diarrhea Encounter for screening for COVID-19 Gallstones Generalized psoriasis High cholesterol History of cataract Hives Non-smoker Osteopenia determined by x-ray Osteoporosis Psoriasis Rash Seasonal allergies Syncope Thyroid disease Wears glasses Surgical History H/O dilation and curettage History of appendectomy History of hysterectomy History of tonsillectomy and adenoidectomy Hx of cholecystectomy Family History Father Alcoholism Anesthesia complication Angina pectoris Diabetes Myocardial infarction Heart disease Hypertension High cholesterol Brother Alcoholism Mother Angina pectoris Arthritis Myocardial infarction Heart disease Hypertension High cholesterol Grandmother Angina pectoris Myocardial infarction Heart disease Hypertension High cholesterol CVA (cerebral vascular accident) Grandfather Angina pectoris Myocardial infarction Heart disease Hypertension High cholesterol Social History Smoking Status: Never smoker alcohol intake: never substance use type: does not use frequency: 3-4 times per week HPI HPI Chief Complaint: persistent productive cough Details: DONAVON FONTAINE, is a 77 F who presents to the office today for initial evaluation in the [facility] for approximately 24 hour history of persistent cough, congestion, sore throat. Patient notes no complaints of chest pain or shortness of breath or dyspnea on exertion. Nonsmoker. Several close contacts recently dx???d w/ similar URI complaints. No vtlw-apg-mejkzmd taken to assist. No other associated symptoms and no other alleviating/aggravating factors. ROS Const Constitutional: No other (As above) Exam Const General: cooperative, healthy appearing and no acute distress Orientation: alert, awake and oriented x3 HENOK Head: normal to inspection Ears: hearing grossly normal bilaterally, external ears normal, TM's normal bilaterally and EAC's normal Nose: external nose normal, nares normal, septum normal and clear nasal discharge Face and sinus: normal facial exam, sinuses nontender and face symmetric Mouth: oral mucosae normal, lip normal, tongue normal and oropharynx normal Throat: posterior oropharynx normal, tonsils normal, uvula midline and no postnasal drainage Eyes General: appearance normal, both eyes and all related structures Neck Neck: normal visual inspection, full ROM, no lymphadenopathy, no meningeal signs and supple Neck mass: No Thyroid: thyroid normal Lymphatic: no lymphadenopathy noted Chest Chest palpation inspection: normal inspection of the chest Resp Effort Inspection: normal respiratory effort, able to speak in complete sentences and cough Quality of cough: wet (nonproductive in office today) Auscultation: Bilateral: Clear to Auscultation Cardio Palpation: normal PMI Rate: tachycardic Rhythm: regular rhythm Heart Sounds: S1 normal, S2 normal, no gallops, no murmurs and no rubs Pulses: radial pulses present Skin General: no rashes or lesions noted Neuro General: patient alert, patient awake and patient oriented x3 Cognition: normal cognition Speech: speech normal Psych Appearance: grossly normal Mental Status: mental status grossly normal Mood: congruent mood Affect: normal affect Speech and Movement: speech and movement normal Attitude: cooperative Diagnoses Contact with or exposure to other viral diseases Z20.828 URI (upper respiratory infection) J06.9 Assessm (more content not included)... Normal [facility] Absolute lymphocyte countOrd ered By: Dr. Denise on 12-17-2022 Lymphocytes Auto (Unsp spec) [#/Vol] 2.28 10*3/uL 0.83-4.51 [facility] Basophil percentageOrdered B y: Dr. Denise on 12-17-2022 Basophils/100 WBC (Bld) 1.0 % 0-1 [facility] Bilirubin [Mass/Vol] 0.50 mg/dL Normal 0.20-1.00 [facility] Comment on above: For patients on eltr ombopag therapy, use of Dimension [place] TBIL is not recommended. Result Comment: For patients on eltrombopag therapy, use of Dimension [place] TBIL is not recommended. Performed By: #### L 501.9520, L500.4100, L100.0100, L500.4050 #### [facility] [address] [place], [address] Chloride [Moles/Vol] 106 mmol/L Normal 98-107 [facility] Comment on above: Performed By: #### L 501.9520, L500.4100, L100.0100, L500.4050 #### [facility] [address] [place], [address] Cholesterol [Mass/Vol] 180 mg/dL Normal [address] [facility] Comment on above: <200 mg/dL Desirable 200-240 mg/dL Borderline >240 mg/dL High Risk Result Comment: <200 mg/dL Desirable 200-240 mg/dL Borderline >240 mg/dL High Risk Performed By: #### L 501.9520, L500.4100, L100.0100, L500.4050 #### [facility] [address] [place], [address] Eosinophils/100 WBC (Bld) 7.1 % 0-5 [facility] Glucose [Mass/Vol] 98 mg/dL Normal 74-106 [facility] Comment on above: Performed By: #### L 501.9520, L500.4100, L100.0100, L500.4050 #### [facility] [address] [place], [address] Neutrophils (Bld) [#/Vol] 4.1 10*3/uL 2.0-7.7 [facility] Neutrophils/100 WBC (Bld) 52.3 % 47-70 [facility] Potassium [Moles/Vol] 4.4 mmol/L Normal 3.5-5.1 [facility] Comment on above: Performed By: #### L 501.9520, L500.4100, L100.0100, L500.4050 #### [facility] [address] [place], [address] Protein [Mass/Vol] 6.9 g/dL 6.4-8.2 [facility] Sodium [Moles/Vol] 137 mmol/L Normal 136-145 [facility] Comment on above: Performed By: #### L 501.9520, L500.4100, L100.0100, L500.4050 #### [facility] [address] [place], [address] Triglyceride [Mass/Vol] 170 mg/dL Normal [facility] Comment on above: The drugs N-Acetylcy steine and Metamizole may falsely depress this assay.Serum Triglycerides Reference Interval Normal <150 mg/dL Borderline high 150 - 199 mg/dL High 200 - 499 mg/dL Very High > or = 500 mg/dL Result Comment: The drugs N-Acetylcysteine and Metamizole may falsely depress this assay. Serum Triglycerides Reference Interval Normal <150 mg/dL Borderline high 150 - 199 mg/dL High 200 - 499 mg/dL Very High > or = 500 mg/dL Performed By: #### L 501.9520, L500.4100, L100.0100, L500.4050 #### [facility] [address] [place], [address] WBC (Bld) [#/Vol] 7.8 10*3/uL 4.4-11.0 [facility] Blood erythrocytes count (nu mber/volume)Ordered By: Dr. Denise on 12-17-2022 RBC (Bld) [#/Vol] 4.52 10*6/uL 4.2-5.4 [facility] Blood hemoglobin measurement (mass/volume)Ordered By: Dr. Denise on 12-17-2022 Hemoglobin (Bld) [Mass/Vol] 14.0 g/dL 12.0-15.0 [facility] Blood lymphocytes/100 leukoc ytesOrdered By: Dr. Denise on 12-17-2022 Lymphocytes/100 WBC (Bld) 29.4 % 19-41 [facility] Blood monocytes/100 leukocyt esOrdered By: Dr. Denise on 12-17-2022 Monocytes/100 WBC (Bld) 9.8 % 0-10 [facility] Blood platelet mean volumeOr dered By: Dr. Denise on 12-17-2022 Platelet mean volume (Bld) [Entitic vol] 11.2 fL 6.2-12.0 [facility] CBC W/Diff, Automatedon Absolute Lymph 2.28 X10 3/uL Normal 0.83-4.51 [facility] Comment on above: Performed By: #### L 501.9520, L500.4100, L100.0100, L500.4050 #### [facility] [address] [place], [address] Absolute Neut 4.1 X10 3/uL Normal 2.0-7.7 [facility] Comment on above: Performed By: #### L 501.9520, L500.4100, L100.0100, L500.4050 #### [facility] [address] [place], [address] Basophils/100 WBC (Bld) 1.0 % Normal 0-1 [facility] Comment on above: Performed By: #### L 501.9520, L500.4100, L100.0100, L500.4050 #### [facility] [address] [place], [address] Eosinophils/100 WBC (Bld) 7.1 % High 0-5 [facility] Comment on above: Performed By: #### L 501.9520, L500.4100, L100.0100, L500.4050 #### [facility] [address] [place], [address] Erythrocyte distribution width (RBC) [Ratio] 12.9 % Normal 11.6-14.6 [facility] Comment on above: Performed By: #### L 501.9520, L500.4100, L100.0100, L500.4050 #### [facility] [address] [place], [address] Hematocrit (Bld) [Volume fraction] 43.2 % Normal 37-47 [facility] Comment on above: Performed By: #### L 501.9520, L500.4100, L100.0100, L500.4050 #### [facility] [address] [place], [address] Hemoglobin (Bld) [Mass/Vol] 14.0 g/dL Normal 12.0-15.0 [facility] Comment on above: Performed By: #### L 501.9520, L500.4100, L100.0100, L500.4050 #### [facility] [address] [place], [address] IG% 0.400 Normal 0.0-0.9 [facility] Comment on above: Result Comment: IG% - Immature Granulocytes (promyelocytes, myelocytes and metamyelocytes) > 1% indicates that a LEFT SHIFT is Present. Performed By: #### L 501.9520, L500.4100, L100.0100, L500.4050 #### [facility] [address] [place], [address] Lymphocytes/100 WBC (Bld) 29.4 % Normal 19-41 [facility] Comment on above: Performed By: #### L 501.9520, L500.4100, L100.0100, L500.4050 #### [facility] [address] [place], [address] MCH (RBC) [Entitic mass] 31.0 pg Normal 27.0-32.0 [facility] Comment on above: Performed By: #### L 501.9520, L500.4100, L100.0100, L500.4050 #### [facility] [address] [place], [address] MCHC (RBC) [Mass/Vol] 32.4 g/dL Normal 32-36 [facility] Comment on above: Performed By: #### L 501.9520, L500.4100, L100.0100, L500.4050 #### [facility] [address] [place], [address] MCV (RBC) [Entitic vol] 95.6 fL Normal 81-99 [facility] Comment on above: Performed By: #### L 501.9520, L500.4100, L100.0100, L500.4050 #### [facility] [address] [place], [address] Monocytes/100 WBC (Bld) 9.8 % Normal 0-10 [facility] Comment on above: Performed By: #### L 501.9520, L500.4100, L100.0100, L500.4050 #### [facility] [address] [place], [address] Neutrophils/100 WBC (Bld) 52.3 % Normal 47-70 [facility] Comment on above: Performed By: #### L 501.9520, L500.4100, L100.0100, L500.4050 #### [facility] [address] [place], [address] Nucleated RBC (Bld) [#/Vol] 0 10*3/uL Normal 0-5 [facility] Comment on above: Performed By: #### L 501.9520, L500.4100, L100.0100, L500.4050 #### [facility] [address] [place], [address] Platelet mean volume (Bld) [Entitic vol] 11.2 fL Normal 6.2-12.0 [facility] Comment on above: Performed By: #### L 501.9520, L500.4100, L100.0100, L500.4050 #### [facility] [address] [place], [address] Platelets (Bld) [#/Vol] 216 10*3/uL Normal 150-450 [facility] Comment on above: Performed By: #### L 501.9520, L500.4100, L100.0100, L500.4050 #### [facility] [address] [place], [address] RBC (Bld) [#/Vol] 4.52 10*6/uL Normal 4.2-5.4 [facility] Comment on above: Performed By: #### L 501.9520, L500.4100, L100.0100, L500.4050 #### [facility] [address] [place], [address] RDW SD 45.4 fl High 35.1-43.9 [facility] Comment on above: Performed By: #### L 501.9520, L500.4100, L100.0100, L500.4050 #### [facility] [address] [place], [address] WBC (Bld) [#/Vol] 7.8 10*3/uL Normal 4.4-11.0 [facility] Comment on above: Performed By: #### L 501.9520, L500.4100, L100.0100, L500.4050 #### [facility] [address] [place], [address] Comprehensive Metabolic Prof [facility] 12-17-2022 ALK P 72 U/L Normal 45-117 [facility] Comment on above: Performed By: #### L 501.9520, L500.4100, L100.0100, L500.4050 #### [facility] [address] [place], [address] AST [Catalytic activity/Vol] 21 U/L Normal 15-37 [facility] Comment on above: Performed By: #### L 501.9520, L500.4100, L100.0100, L500.4050 #### [facility] [address] [place], [address] BUN/CRE 17.3 RATIO Normal 10-20 [facility] Comment on above: Performed By: #### L 501.9520, L500.4100, L100.0100, L500.4050 #### [facility] [address] [place], [address] CA,Total 9.6 mg/dL Normal 8.5-10.1 [facility] Comment on above: Performed By: #### L 501.9520, L500.4100, L100.0100, L500.4050 #### [facility] [address] [place], [address] EST GFR - AA 66 mL/min Normal >60 [facility] Comment on above: Result Comment: Afri can Citizen Of [place] GFR Calc Performed By: #### L 501.9520, L500.4100, L100.0100, L500.4050 #### [facility] [address] [place], [address] GAP 7 Normal 5-15 [facility] Comment on above: Performed By: #### L 501.9520, L500.4100, L100.0100, L500.4050 #### [facility] [address] [place], [address] GFR/1.73 sq M.predicted among non-blacks MDRD (S/P/Bld) [Vol rate/Area] 55 mL/min/{1.73_m2} Low >60 [facility] Comment on above: Result Comment: Non- GFR Calc Performed By: #### L 501.9520, L500.4100, L100.0100, L500.4050 #### [facility] [address] [place], [address] T PROT 6.9 g/dL Normal 6.4-8.2 [facility] Comment on above: Performed By: #### L 501.9520, L500.4100, L100.0100, L500.4050 #### [facility] [address] [place], [address] Comprehensive Metabolic Prof ilOrdered By: Dr. Denise on 12-17-2022 ALT [Catalytic activity/Vol] 49 U/L Normal 13-56 [facility] Comment on above: Performed By: #### L 501.9520, L500.4100, L100.0100, L500.4050 #### [facility] [address] [place], [address] CO2 [Moles/Vol] 24.0 mmol/L Normal 21.0-32.0 [facility] Comment on above: Performed By: #### L 501.9520, L500.4100, L100.0100, L500.4050 #### [facility] [address] [place], [address] Globulin (S) [Mass/Vol] 3.0 g/dL Normal 2.2-4.2 [facility] Comment on above: Performed By: #### L 501.9520, L500.4100, L100.0100, L500.4050 #### [facility] [address] [place], [address] Determination of erythrocyte mean corpuscular volume (MCV)Ordered By: Dr. Denise on 12-17-2022 MCV (RBC) [Entitic vol] 95.6 fL 81-99 [facility] Hematocrit Auto (Bld) [Volum e fraction]Ordered By: Dr. Denise on 12-17-2022 Hematocrit (Bld) [Volume fraction] 43.2 % 37-47 [facility] - Chemistry and C hemistry - challengeOrdered By: Dr. Denise on 12-17-2022 ALP [Catalytic activity/Vol] 72 U/L 45-117 [facility] Urea nitrogen/Creatinine [Mass ratio] 17.3 mg/mg 10-20 [facility] - Hematology and Cell countsOrdered By: Dr. Denise on 12-17-2022 Erythrocyte distribution width (RBC) [Entitic vol] 45.4 fL 35.1-43.9 [facility] Erythrocyte distribution width (RBC) [Ratio] 12.9 % 11.6-14.6 [facility] Immature granulocytes/100 WBC (Bld) 0.400 % 0.0-0.9 [facility] Comment on above: IG% - Immature Granu locytes (promyelocytes, myelocytes and metamyelocytes) > 1% indicates that a LEFT SHIFT is Present. MCH (RBC) [Entitic mass] 31.0 pg 27.0-32.0 [facility] Nucleated RBC/100 WBC (Bld) [Ratio] 0 % 0-5 [facility] MCHC Auto (RBC) [Mass/Vol]Or dered By: Dr. Denise on 12-17-2022 MCHC (RBC) [Mass/Vol] 32.4 g/dL 32-36 [facility] No Panel InformationOrdered By: Dr. Denise on 12-17-2022 Estimated GFR (MDRD) Amer 66 mL/min >60 [facility] Comment on above: GFR Calc Estimated GFR (MDRD) Non-Af Amer 55 mL/min >60 [facility] Comment on above: Non- GFR Calc Thyroid Stimulating Hormone (TSH) 1.35 uIU/mL 0.358-3.74 [facility] Platelets bldOrdered By: Dr. Denise on 12-17-2022 Platelets (Bld) [#/Vol] 216 10*3/uL 150-450 [facility] Serum or plasma albumin amanda urement (mass/volume)Ordered By: Dr. Denise on 12-17-2022 Albumin [Mass/Vol] 3.9 g/dL Normal 3.2-5.0 [facility] Comment on above: Performed By: #### L 501.9520, L500.4100, L100.0100, L500.4050 #### [facility] [address] [place], [place], [id number] Serum or plasma albumin/glob ulin mass ratioOrdered By: Dr. Denise on 12-17-2022 Albumin/Globulin [Mass ratio] 1.3 {ratio} Normal 0.9-2.4 [facility] Comment on above: Performed By: #### L 501.9520, L500.4100, L100.0100, L500.4050 #### [facility] [address] [place], [place], [id number] Serum or plasma calcium amanda urement (mass/volume)Ordered By: Dr. Denise on 12-17-2022 Calcium [Mass/Vol] 9.6 mg/dL 8.5-10.1 [facility] Serum or plasma cholesterol in HDL measurement (mass/volume)Ordered By: Dr. Denise on 12-17-2022 Cholesterol in HDL [Mass/Vol] 66 mg/dL Normal [facility] Comment on above: The drugs N-Acetylcy steine and Metamizole may falsely depress this assay. Reference Range HDL <40 mg/dL Low HDL Cholesterol HDL >or= 60 mg/dL High HDL Cholesterol Result Comment: The drugs N-Acetylcysteine and Metamizole may falsely depress this assay. Reference Range HDL <40 mg/dL Low HDL Cholesterol HDL >or= 60 mg/dL High HDL Cholesterol Performed By: #### L 501.9520, L500.4100, L100.0100, L500.4050 #### [facility] [address] [place], [place], [id number] Serum or plasma cholesterol in VLDL measurement (mass/volume)Ordered By: Dr. Denise on 12-17-2022 Cholesterol in VLDL [Mass/Vol] 34 mg/dL Normal 5-40 [facility] Comment on above: Performed By: #### L 501.9520, L500.4100, L100.0100, L500.4050 #### [facility] [address] [place], [address] Serum or plasma creatinine m easurement (mass/volume)Ordered By: Dr. Denise on 12-17-2022 Creatinine [Mass/Vol] 1.04 mg/dL High 0.55-1.02 [facility] Comment on above: The validity of the calculated GFR & GFRAA in patients over 70 years has not been determined. Clinical correlation is essential. Result Comment: The validity of the calculated GFR GFRAA in patients over 70 years has not been determined. Clinical correlation is essential. Performed By: #### L 501.9520, L500.4100, L100.0100, L500.4050 #### [facility] [address] [place], [address] Serum or plasma low density lipoprotein (LDL) cholesterol measurement (mass/volume)Ordered By: Dr. Denise on 12-17-2022 Cholesterol in LDL [Mass/Vol] 80 mg/dL Normal 0-130 [facility] Comment on above: Performed By: #### L 501.9520, L500.4100, L100.0100, L500.4050 #### [facility] [address] [place], [address] Serum or plasma urea nitroge n measurement (mass/volume)Ordered By: Dr. Denise on 12-17-2022 Urea nitrogen [Mass/Vol] 18 mg/dL Normal 7-18 [facility] Comment on above: Performed By: #### L 501.9520, L500.4100, L100.0100, L500.4050 #### [facility] [address] [place], [address] Thin prep Papanicolaou smear with manual screeningOrdered By: Dr. Denise on 12-17-2022 Thin prep Papanicolaou smear with manual screening 21 U/L 15-37 [facility] Thin prep Papanicolaou smear with manual screening 7 5-15 [facility] Thyroid Stim Hormone (TSH)on 12-17-2022 TSH 1.35 uIU/mL Normal 0.358-3.74 [facility] Comment on above: Performed By: #### L 501.9520, L500.4100, L100.0100, L500.4050 #### [facility] [address] [facility] [place], [place], [address] Chest without Contraston Chest without Contrast [facility] [address] [place] [address] Chest without Contrast MR#: [id number] Acct: [id number] Name: DONAVON FONTAINE Rep #: [id number] : 1945 F 77 From: Jose Guadalupe Willard MD PCP: Dr. Ruth Denise MD Status: REG CLI Study: Chest without Contrast Date of Exam: 11/12/22 Exam# [id number] Ordering Dr: Ruth Denise MD INDICATION: CHRONIC COUGH EXAMINATION: CT CHEST WITHOUT CONTRAST - CT Chest W/O Contrast Injection TECHNIQUE: Helically acquired images were obtained of the chest. A radiation dose optimization technique was used for this scan. IV Contrast dosage and agent: None. COMPARISON: PA and lateral chest September 24, 2021. FINDINGS: LUNGS, PLEURA AND LARGE AIRWAYS: There is minor bibasilar interstitial thickening.. Minor pleural-parenchymal scarring in right apex. No pleural effusion or pneumothorax. Small calcified granuloma in the right lower lobe.. THYROID: No thyroid lesions. HEART AND PERICARDIUM: Heart size is normal. No pericardial effusion. CORONARY ARTERIES: Coronary artery calcification VESSELS: Thoracic aorta is not dilated. MEDIASTINUM AND EMRE: No mediastinal or hilar adenopathy. Esophagus is unremarkable. Small hiatal hernia is noted. UPPER ABDOMEN: No acute pathology. BONES: No suspicious lytic or blastic abnormality. CT/Chest without Contrast IMPRESSION: Minor chronic interstitial thickening at the lung bases and right apical pleural-parenchymal scarring. Old granulomatous nodule in the right lower lobe. No acute cardiopulmonary pathology Electronically Signed: Jose Guadalupe Willard MD at 18:41 EDT Reading Location ID and State: [facility] / [place] , Service support , CC: Dr. Ruth Denise MD Needle Board Repairer: Signed [facility] CNOVon 10-16-2022 CNOV Office Visit (UCWSTR ) ----- RAULAriaDONAVON ([id number]) 1945 F DEF Date Time Provider Department 10/16/22 10:15 AM [facility] During your visit today, we recorded the following information about you: Temperature Pulse Respiration Blood pressure 98.4 degrees 104/minute 18/minute 132/82 Weight 71.1 kg EDUARDO Crowe 10/16/2022 11:16 AM Signed This note was created using Hapzingriter. Subjective Donavon Fontaine is a 76 year old female. HPI 76-year-old female presents for cough, congestion x5 days. Patient states she started getting a cough on Friday. No shortness of breath. She does feel like she has some wheezing. She was seen at well in our clinic and diagnosed with bronchitis. She was started on azithromycin, Tessalon Perles, albuterol inhaler. She has also been taking Mucinex. She states that she is still having symptoms of cough. She is coughing up a little bit of phlegm. She finished the azithromycin. She states that she had COVID about 5 weeks ago, so was not tested for COVID or flu. She has not had any fevers. No vomiting or diarrhea. States that she was told in the past that she may have COPD from her father smoking around her. She does use inhalers at home. She has no chest pain. History reviewed. No pertinent past medical history. No past surgical history on file. ALLERGIES Alendronate and Demerol [Meperidine] MEDICATIONS albuterol HFA (PROVENTIL HFA, VENTOLIN HFA) 90 mcg/actuation inhaler Inhale as instructed. azithromycin (ZITHROMAX) 250 mg tablet benzonatate (TESSALON PERLE) 100 mg capsule Take by mouth. dexAMETHasone (DECADRON) 6 mg tablet levothyroxine (SYNTHROID) 75 mcg tablet simvastatin (ZOCOR) 20 mg tablet Take 20 mg by mouth. VITAMIN B COMPLEX ORAL Take by mouth. No family history on file. Social History Tobacco Use Smoking status: Never Smokeless tobacco: Never Review of Systems Constitutional: Negative for chills and fever. HENT: Positive for congestion. Negative for ear pain and sore throat. Respiratory: Positive for cough and wheezing. Negative for shortness of breath. Cardiovascular: Negative for chest pain. Gastrointestinal: Negative for diarrhea and vomiting. Objective BP 132/82 Pulse 104 Temp 36.9 ?C (98.4 ?F) (Tympanic) Resp 18 Wt 71.1 kg (156 lb 12.8 oz) SpO2 96% Physical Exam Vitals and nursing note reviewed. Constitutional: General: She is not in acute distress. Appearance: Normal appearance. She is not toxic-appearing. HENT: Right Ear: Tympanic membrane and ear canal normal. Left Ear: Tympanic membrane and ear canal normal. Nose: Nose normal. Mouth/Throat: Mouth: Mucous membranes are moist. Pharynx: No oropharyngeal exudate or posterior oropharyngeal erythema. Eyes: Conjunctiva/sclera: Conjunctivae normal. Cardiovascular: Rate and Rhythm: Normal rate and regular rhythm. Pulmonary: Effort: Pulmonary effort is normal. Breath sounds: Wheezing present. Neurological: Mental Status: She is alert. Assessment and Plan ASSESSMENT/PLAN: 1. Acute cough - ICD9: 786.2, ICD10: R05.1 (primary diagnosis) - XR CHEST 2V FRONTAL/LA -Chest x-ray reveals no acute findings 2. Bronchitis - ICD9: 490, ICD10: J40 -Patient has already completed azithromycin, has inhaler, and is prescribed Tessalon Perles. -Rx for prednisone as she is wheezing. States has history of COPD. -Declines COVID/flu swab. Just had COVID 5 weeks ago. -Recommend follow-up with PCP next week if no improvement. Diagnosis and treatment plan were discussed and questions were answered to the patient's satisfaction. Pt acknowledged understanding of concepts and follow up plan. Specific signs and symptoms that would indicate the need for higher level of care were discussed in detail warranting prompt ER evaluation. EDUARDO Crowe Allergies As of Date: 10/16/2022 Noted Allergy Reaction ALENDRONATE 05/03/2021 14 - Other: See Comments Comments: Joint and muscle pain DEMEROL (MEPERIDINE) 10/16/2022 5 - Intolerance Date Reviewed: 10/16/2022 Reviewed by: Hanna Belle LPN - Fully Assessed Reason for Visit: Cough [28] Cmt: Cough and congestion x 5 days Primary Visit Diagnosis:Acute cough [R05.1] Other Visit Diagnosis:Bronchitis [J40] Order(s):XR CHEST 2V FRONTAL/LAT [[id number]] Order #: [id number] FUTURE predniSONE (DELTASONE) 20 mg tabletTake 2 tablets by mouth once daily for 4 days. Take daily with food.Disp: 8 tabletRfl: 0 Prescriptions as of 10/16/2022 - albuterol HFA (PROVENTIL HFA, VENTOLIN HFA) 90 mcg/actuation inhaler Inhale as instructed. - azithromycin (ZITHROMAX) 250 mg tablet - benzonatate (TESSALON PERLE) 100 mg capsule Take by mouth. - dexAMETHasone (DECADRON) 6 mg tablet - levothyroxine (SYNTHROID) 75 mcg tablet - simvastatin (ZOCOR) 20 mg tablet Take 20 mg by mouth. - VITAMIN B COMPLEX (more content not included)... Normal [facility] XR CHEST 2V FRONTAL/LATon XR CHEST 2V FRONTAL/LAT * * *Final Repor t* * * DATE OF EXAM: Oct 16 2022 11:07AM WOX [id number] - XR CHEST 2V FRONTAL/LAT / PROCEDURE REASON: Acute cough * * * * Physician Interpretation * * * * EXAMINATION: CHEST RADIOGRAPH (2 VIEW FRONTAL and LATERAL) CLINICAL HISTORY: Acute cough MQ: XC2_6 EXAM DATE/TIME: 10/16/2022 11:07 AM COMPARISON: No relevant prior studies available. RESULT: Lines, tubes, and devices: None. Lungs and pleura: No consolidation. No lung mass. No pleural effusion. No pneumothorax. Cardiomediastinal silhouette: Normal cardiomediastinal silhouette. Bones and soft tissues: No acute abnormality IMPRESSION: No acute radiographic abnormality. Needle Board Repairer: [facility] Transcribe Date/Time: Oct 16 2022 11:08A Dictated by : LATIA ROBLES MD This examination was interpreted and the report reviewed and electronically signed by: LATIA ROBLES MD on Oct 16 2022 11:09AM EST [id number] Normal [facility] XR Chest PA and Lateralon IMPRESSION: No acute radiographic abnormality. Needle Board Repairer: [facility] Transcribe Date/Time: Oct 16 2022 11:08A Dictated by : LATIA ROBLES MD This examination was interpreted and the report reviewed and electronically signed by: LATIA ROBLES MD on Oct 16 2022 11:09AM EST DIVISION OF RADIOLOGY * * *Final Report* * * DATE OF EXAM: Oct 16 2022 11:07AM WOX 5291 - XR CHEST 2V FRONTAL/LAT / PROCEDURE REASON: Acute cough * * * * Physician Interpretation * * * * EXAMINATION: CHEST RADIOGRAPH (2 VIEW FRONTAL & LATERAL) CLINICAL HISTORY: Acute cough MQ: XC2_6 EXAM DATE/TIME: 10/16/2022 11:07 AM COMPARISON: No relevant prior studies available. RESULT: Lines, tubes, and devices: None. Lungs and pleura: No consolidation. No lung mass. No pleural effusion. No pneumothorax. Cardiomediastinal silhouette: Normal cardiomediastinal silhouette. Bones and soft tissues: No acute abnormality DIVISION OF RADIOLOGY Provider, [facility] - 10/16/2022 * * *Final Report* * * DATE OF EXAM: Oct 16 2022 11:07AM WOX 5291 - XR CHEST 2V FRONTAL/LAT / PROCEDURE REASON: Acute cough * * * * Physician Interpretation * * * * EXAMINATION: CHEST RADIOGRAPH (2 VIEW FRONTAL & LATERAL) CLINICAL HISTORY: Acute cough MQ: XC2_6 EXAM DATE/TIME: 10/16/2022 11:07 AM COMPARISON: No relevant prior studies available. RESULT: Lines, tubes, and devices: None. Lungs and pleura: No consolidation. No lung mass. No pleural effusion. No pneumothorax. Cardiomediastinal silhouette: Normal cardiomediastinal silhouette. Bones and soft tissues: No acute abnormality IMPRESSION IMPRESSION: No acute radiographic abnormality. Needle Board Repairer: [facility] Transcribe Date/Time: Oct 16 2022 11:08A Dictated by : LATIA ROBLES MD This examination was interpreted and the report reviewed and electronically signed by: LATIA ROBLES MD on Oct 16 2022 11:09AM EST [facility] Radiology Study observation (narrative) Gregorio rdz [facility] XR Chest PA and LateralOrder ed By: [facility] Provider on 10-16-2022 [facility] Urgent Care Visit Reporton 0 10-11-2022 Urgent Care Visit Report [facility] [address] [place] [address] OFFICE VISIT Date of Service: 10/11/22 MR#: [id number] Acct: [id number] Name: DONAVON FONTAINE Rep #: [id number] : 1945 Provider: BURKE ambriz Age/Sex: 76/F [place] [facility] Status: Signed Intake Vital Signs 10/11/22 07:52 10/11/22 08:44 Height 5 ft 5 in BP 170/82 H Blood Pressure Location Lt brachial Position Sitting Respiration 20 H Pulse 107 H Pulse Source Monitor Temp 97.5 F L Temp Source Temporal Pulse Oximetry (%) 97 Oxygen Delivery Method room air Intake Visit Reasons: Bronchitis Chief Complaint: persistent productive cough Is patient in pain?: No Allergies alendronate sodium Allergy (Severe, Verified 10/11/22 08:41) JOINT MUSCLE PAIN Medications calcium acetate 1 cap PO DAILY 01/24/21 [History Confirmed 10/11/22] cholecalciferol (vitamin D3) 1 tab PO DAILY 01/24/21 [History Confirmed 10/11/22] levothyroxine 75 mcg tablet 75 mcg PO DAILY 01/24/21 [History Confirmed 10/11/22] multivitamin 1 tab PO DAILY 01/24/21 [History Confirmed 10/11/22] omega-3 fatty acids [Fish Oil] 1 cap PO DAILY 01/24/21 [History Confirmed 10/11/22] simvastatin 20 mg tablet 20 mg PO DAILY 01/24/21 [History Confirmed 10/11/22] vitamin B complex 1 cap PO DAILY 01/24/21 [History Confirmed 10/11/22] onlyvvvs-zfjssxeqhe-oq glycn-C 500 mg-400 mg capsule 1 cap PO DAILY 05/03/21 [History Confirmed 10/11/22] prednisolone acetate 1 % eye drops,suspension 1 drp ophthalmic (eye) DAILY 08/30/22 [History Confirmed 10/11/22] albuterol sulfate 90 mcg/actuation aerosol inhaler 2 puff inhalation Q6H PRN 10/11/22 [History Confirmed 10/11/22] azithromycin 250 mg tablet See Rx Instructions PO .COMPLEX #6 tabs 10/11/22 [Rx Confirmed 10/11/22] benzonatate 100 mg capsule 100 mg PO BID-TID PRN 10/11/22 [History Confirmed 10/11/22] PFSH Medical History Acute bronchitis, unspecified Arthritis Bone fracture Breast lump Carotid artery stenosis Cataracts, bilateral Chronic renal disease, stage 3, moderately decreased glomerular filtration rate (GFR) between 30-59 mL/min/1.73 square meter COPD (chronic obstructive pulmonary disease) Diarrhea Encounter for screening for COVID-19 Gallstones Generalized psoriasis High cholesterol History of cataract Hives Non-smoker Osteopenia determined by x-ray Osteoporosis Psoriasis Rash Seasonal allergies Syncope Thyroid disease Wears glasses Surgical History H/O dilation and curettage History of appendectomy History of hysterectomy History of tonsillectomy and adenoidectomy Hx of cholecystectomy Family History Father Alcoholism Anesthesia complication Angina pectoris Diabetes Myocardial infarction Heart disease Hypertension High cholesterol Brother Alcoholism Mother Angina pectoris Arthritis Myocardial infarction Heart disease Hypertension High cholesterol Grandmother Angina pectoris Myocardial infarction Heart disease Hypertension High cholesterol CVA (cerebral vascular accident) Grandfather Angina pectoris Myocardial infarction Heart disease Hypertension High cholesterol Social History Smoking Status: Never smoker alcohol intake: never substance use type: does not use frequency: 3-4 times per week HPI HPI Chief Complaint: persistent productive cough Details: DONAVON FONTAINE, is a 76 F who presents to the office today for cough, congestion, fatigue started earlier in the week. Her cough and SOB are her biggest concerns. She feels like she is coughing all the time and it is keeping her awake at night. She recently had covid a few weeks ago (but she was seen here in August for it). She has been taking benzonatate and albuterol left over from an illness last year with no relief in symptoms. ROS Const Constitutional: Positive for fatigue and headache(s); No body ache, chills or fever(s) ENT ENT: Positive for headache(s) Resp Respiratory: Positive for cough and shortness of breath Cardio Cardiology: No chest pain at rest Gastro GI: No diarrhea, nausea/dyspepsia or vomiting Musc Musculoskeletal: No muscle weakness or myalgias Skin Skin: No rash Neuro Neurology: Positive for headache(s) and memory loss (patient states that she has a hard time remembering things) Psych Psychiatric: Positive for memory loss (patient states that she has a hard time remembering things) Endo Endocrine: Positive for fatigue Exam Const General: cooperative, no acute distress and ill appearing acutely Nutritional Appearance: average body habi (more content not included)... Normal [facility] Laboratory - Microbiology an d Antimicrobial susceptibilityon 08-30-2022 SARS-CoV-2 (COVID-19) RNA ZEENAT+probe Ql (Unsp spec) Detected [facility] No Panel Informationon 08-30 Influenza Types A,B Rapid (Clinic) Not detected [facility] Urgent Care Visit Reporton 0 08-30-2022 Urgent Care Visit Report [facility] [address] [place] [address] OFFICE VISIT Date of Service: 08/30/22 MR#: [id number] Acct: [id number] Name: DONAVON FONTAINE Rep #: [id number] : 1945 Provider: EDUARDO Bradley Age/Sex: 76/F Location: [facility] Status: Signed Intake Vital Signs 08/30/22 08:35 Height 5 ft 5 in BP 144/86 H Respiration 18 Pulse 102 H Temp 97.8 F Pulse Oximetry (%) 98 Oxygen Delivery Method room air Intake Visit Reasons: COUGH, SORE THROAT, HEADACHE/EXPOSURE TO COVID [employer] Required: No Is patient in pain?: Yes (Generalized discomfort) Pain scale (1-10): 4 Allergies alendronate sodium Allergy (Severe, Verified 08/30/22 08:36) JOINT MUSCLE PAIN Medications calcium acetate 1 cap PO DAILY 01/24/21 [History Confirmed 08/30/22] cholecalciferol (vitamin D3) 1 tab PO DAILY 01/24/21 [History Confirmed 08/30/22] levothyroxine 75 mcg tablet 75 mcg PO DAILY 01/24/21 [History Confirmed 08/30/22] multivitamin 1 tab PO DAILY 01/24/21 [History Confirmed 08/30/22] omega-3 fatty acids [Fish Oil] 1 cap PO DAILY 01/24/21 [History Confirmed 08/30/22] simvastatin 20 mg tablet 20 mg PO DAILY 01/24/21 [History Confirmed 08/30/22] vitamin B complex 1 cap PO DAILY 01/24/21 [History Confirmed 08/30/22] brnljues-gbdhangjoj-ev glycn-C 500 mg-400 mg capsule 1 cap PO DAILY 05/03/21 [History Confirmed 08/30/22] dexamethasone 6 mg tablet 6 mg PO DAILY #5 tabs 08/30/22 [Rx Confirmed 08/30/22] prednisolone acetate 1 % eye drops,suspension 1 drp ophthalmic (eye) DAILY 08/30/22 [History Confirmed 08/30/22] [facility] Medical History Acute bronchitis, unspecified Arthritis Bone fracture Breast lump Carotid artery stenosis Cataracts, bilateral Chronic renal disease, stage 3, moderately decreased glomerular filtration rate (GFR) between 30-59 mL/min/1.73 square meter COPD (chronic obstructive pulmonary disease) Diarrhea Encounter for screening for COVID-19 Gallstones Generalized psoriasis High cholesterol History of cataract Hives Non-smoker Osteopenia determined by x-ray Osteoporosis Psoriasis Rash Seasonal allergies Syncope Thyroid disease Wears glasses Surgical History H/O dilation and curettage History of appendectomy History of hysterectomy History of tonsillectomy and adenoidectomy Hx of cholecystectomy Family History Father Alcoholism Anesthesia complication Angina pectoris Diabetes Myocardial infarction Heart disease Hypertension High cholesterol Brother Alcoholism Mother Angina pectoris Arthritis Myocardial infarction Heart disease Hypertension High cholesterol Grandmother Angina pectoris Myocardial infarction Heart disease Hypertension High cholesterol CVA (cerebral vascular accident) Grandfather Angina pectoris Myocardial infarction Heart disease Hypertension High cholesterol Social History Smoking Status: Never smoker alcohol intake: never substance use type: does not use frequency: 3-4 times per week HPI HPI Details: DONAVON FONTAINE, is a 76 F who presents to the office today for complaint of cough, sore throat and headache starting last night. Patient denies fever, chills, sweats. No hemoptysis, shortness of breath or difficulty breathing. No loss of taste or smell. No other associated symptoms or alleviating/aggravating factors. ROS Const Constitutional: No other (6 system ROS completed with pertinent findings in the HPI otherwise normal.) Exam Const General: cooperative and well developed HENOK Head: normal to inspection and atraumatic Ears: hearing grossly normal bilaterally Nose: nasal discharge clear Face and sinus: normal facial exam Mouth: oral mucosae normal Throat: abnormal tonsil bilaterally hypertrophy 1+ Resp Effort Inspection: normal respiratory effort and no audible wheezes Auscultation: Bilateral: Clear to Auscultation Cardio Palpation: normal PMI Rate: regular rate Rhythm: regular rhythm Neuro General: patient alert and CN's II-XI intact bilaterally Psych Appearance: grossly normal Mental Status: mental status grossly normal Results POC CLARI Covid FluAB PCR POC Clari Covid PCR Detected Last Edit by Kiersten Kee on 08/30/22 09:22 POC CLARI FLU NOT DETECTED FLU A B Last Edit by Kiersten Kee on 08/30/22 09:22 Coding Level of Care Code Off vis,est,level 3 Diagnoses COVID-19 U07.1 Assessment and Plan Assessment and Plan (1) COVID-19: Status: Acute Orders: Orders POC Clari Covid FLUAB PCR Today Medications: New dexamethasone 6 mg PO DA (more content not included)... Normal [facility] Absolute lymphocyte counton 06-17-2022 Lymphocytes Auto (Unsp spec) [#/Vol] 2.11 10*3/uL 0.83-4.51 [facility] Work Phone: Basophil percentageon 2021 Basophils/100 WBC (Bld) 0.6 % 0-1 [facility] Work Phone: Bilirubin [Mass/Vol] 0.60 mg/dL 0.20-1.00 [facility] Work Phone: Comment on above: For patients on eltr ombopag therapy, use of Dimension [place] TBIL is not recommended. Chloride [Moles/Vol] 104 mmol/L 98-107 [facility] Work Phone: Cholesterol [Mass/Vol] 201 mg/dL <200 [facility] Work Phone: Comment on above: <200 mg/dL Desirable 200-240 mg/dL Borderline >240 mg/dL High Risk Eosinophils/100 WBC (Bld) 5.9 % 0-5 [facility] Work Phone: Glucose [Mass/Vol] 102 mg/dL 74-106 [facility] Work Phone: Comment on above: Fasting Glucose resu lt from 100 to 125 mg/dL suggests IMPAIRED HOMEOSTASIS per A.D.A. criteria. Neutrophils (Bld) [#/Vol] 4.4 10*3/uL 2.0-7.7 [facility] Work Phone: Neutrophils/100 WBC (Bld) 56.6 % 47-70 [facility] Work Phone: Potassium [Moles/Vol] 4.2 mmol/L 3.5-5.1 [facility] Work Phone: Protein [Mass/Vol] 7.1 g/dL 6.4-8.2 [facility] Work Phone: Sodium [Moles/Vol] 137 mmol/L 136-145 [facility] Work Phone: Triglyceride [Mass/Vol] 167 mg/dL <199 [facility] Work Phone: Comment on above: The drugs N-Acetylcy steine and Metamizole may falsely depress this assay.Serum Triglycerides Reference Interval Normal <150 mg/dL Borderline high 150 - 199 mg/dL High 200 - 499 mg/dL Very High > or = 500 mg/dL WBC (Bld) [#/Vol] 7.8 10*3/uL 4.4-11.0 [facility] Work Phone: Blood erythrocytes count (nu mber/volume)on 06-17-2022 RBC (Bld) [#/Vol] 4.68 10*6/uL 4.2-5.4 [facility] Work Phone: Blood hemoglobin measurement (mass/volume)on 06-17-2022 Hemoglobin (Bld) [Mass/Vol] 14.6 g/dL 12.0-15.0 [facility] Work Phone: Blood lymphocytes/100 leukoc yteson 06-17-2022 Lymphocytes/100 WBC (Bld) 27.1 % 19-41 [facility] Work Phone: Blood monocytes/100 leukocyt eson 06-17-2022 Monocytes/100 WBC (Bld) 9.4 % 0-10 [facility] Work Phone: Blood platelet mean volumeon 06-17-2022 Platelet mean volume (Bld) [Entitic vol] 10.8 fL 6.2-12.0 [facility] Work Phone: Determination of erythrocyte mean corpuscular volume (MCV)on 06-17-2022 MCV (RBC) [Entitic vol] 95.1 fL 81-99 [facility] Work Phone: Hematocrit Auto (Bld) [Volum e fraction]on 06-17-2022 Hematocrit (Bld) [Volume fraction] 44.5 % 37-47 [facility] Work Phone: Laboratory - Chemistry and C hemistry - challengeon 06-17-2022 ALP [Catalytic activity/Vol] 82 U/L 45-117 [facility] Work Phone: ALT [Catalytic activity/Vol] 42 U/L 13-56 [facility] Work Phone: CO2 [Moles/Vol] 25.0 mmol/L 21.0-32.0 [facility] Work Phone: Globulin (S) [Mass/Vol] 2.8 g/dL 2.2-4.2 [facility] Work Phone: Urea nitrogen/Creatinine [Mass ratio] 16.0 mg/mg 10-20 [facility] Work Phone: Laboratory - Hematology and Cell countson 06-17-2022 Erythrocyte distribution width (RBC) [Entitic vol] 45.9 fL 35.1-43.9 [facility] Work Phone: Erythrocyte distribution width (RBC) [Ratio] 13.1 % 11.6-14.6 [facility] Work Phone: Immature granulocytes/100 WBC (Bld) 0.400 % 0.0-0.9 [facility] Work Phone: Comment on above: IG% - Immature Granu locytes (promyelocytes, myelocytes and metamyelocytes) > 1% indicates that a LEFT SHIFT is Present. MCH (RBC) [Entitic mass] 31.2 pg 27.0-32.0 [facility] Work Phone: Nucleated RBC/100 WBC (Bld) [Ratio] 0 % 0-5 [facility] Work Phone: MCHC Auto (RBC) [Mass/Vol]on 06-17-2022 MCHC (RBC) [Mass/Vol] 32.8 g/dL 32-36 [facility] Work Phone: No Panel Informationon 06-17 Estimated GFR (MDRD) Amer 69 mL/min >60 [facility] Work Phone: Comment on above: GFR Calc Estimated GFR (MDRD) Non-Af Amer 57 mL/min >60 [facility] Work Phone: Comment on above: Non- GFR Calc Thyroid Stimulating Hormone (TSH) 0.95 uIU/mL 0.358-3.74 [facility] Work Phone: Platelets bldon 06-17-2022 Platelets (Bld) [#/Vol] 237 10*3/uL 150-450 [facility] Work Phone: Serum or plasma albumin amanda urement (mass/volume)on 06-17-2022 Albumin [Mass/Vol] 4.3 g/dL 3.2-5.0 [facility] Work Phone: Serum or plasma albumin/glob ulin mass ratioon 06-17-2022 Albumin/Globulin [Mass ratio] 1.5 {ratio} 0.9-2.4 [facility] Work Phone: Serum or plasma calcium amanda urement (mass/volume)on 06-17-2022 Calcium [Mass/Vol] 9.4 mg/dL 8.5-10.1 [facility] Work Phone: Serum or plasma cholesterol in HDL measurement (mass/volume)on 06-17-2022 Cholesterol in HDL [Mass/Vol] 89 mg/dL >40 [facility] Work Phone: Comment on above: The drugs N-Acetylcy steine and Metamizole may falsely depress this assay. Reference Range HDL <40 mg/dL Low HDL Cholesterol HDL >or= 60 mg/dL High HDL Cholesterol Serum or plasma cholesterol in VLDL measurement (mass/volume)on 06-17-2022 Cholesterol in VLDL [Mass/Vol] 33 mg/dL 5-40 [facility] Work Phone: Serum or plasma creatinine m easurement (mass/volume)on 06-17-2022 Creatinine [Mass/Vol] 1.00 mg/dL 0.55-1.02 [facility] Work Phone: Comment on above: The validity of the calculated GFR & GFRAA in patients over 70 years has not been determined. Clinical correlation is essential. Serum or plasma low density lipoprotein (LDL) cholesterol measurement (mass/volume)on 06-17-2022 Cholesterol in LDL [Mass/Vol] 79 mg/dL 0-130 [facility] Work Phone: Serum or plasma urea nitroge n measurement (mass/volume)on 06-17-2022 Urea nitrogen [Mass/Vol] 16 mg/dL 7-18 [facility] Work Phone: Thin prep Papanicolaou smear with manual screeningon 06-17-2022 Thin prep Papanicolaou smear with manual screening 17 U/L 15-37 [facility] Work Phone: Thin prep Papanicolaou smear with manual screening 8 5-15 [facility] Work Phone: No Panel Informationon 02-25 Miscellaneous Test See comment [facility] Work Phone: Comment on above: TEST RESULT UNITS RE F INTERVALIBD Expanded PanelgASCA 24 units 0-50 Negative <45 Equivocal 45 - 50 Positive >50ACCA 2 units 0-90 Negative <80 Equivocal 80 - 90 Positive >90ALCA 9 units 0-60 Negative <55 Equivocal 55 - 60 Positive >60AMCA 29 units 0-100 Negative < 90 Equivocal 90 - 100 Positive >100 This test was developed and its performance characteristics determined by [facility]. It has not been cleared or approved by the Food and Drug Administration. The FDA has determined that such clearance or approval is not necessary.Atypical pANCA Negative NegativeCommentsPattern is not suggestive of Inflammatory Bowel Disease __ TESTING PERFORMED AT [facility]. ORIGINAL REPORT ON FILE IN LAB CONTAINS ADDITIONAL TEST SITE INFORMATION. Previous reported result: Edited by: IVAN on 03/03/22:1427 AMENDED REPORT 03/03/221426 [facility] [place] [facility] TEST previously reported as: TEST RESULT UNITS REF INTERVALIBD Expanded PanelgASCA 24 units 0-50 Negative <45 Equivocal 45 - 50 Positive >50ACCA 2 units 0-90 Negative <80 Equivocal 80 - 90 Positive >90ALCA 9 units 0-60 Negative <55 Equivocal 55 - 60 Positive >60AMCA 29 units 0-100 Negative < 90 Equivocal 90 - 100 Positive >100 This test was developed and its performance characteristics determined by [facility]. It has not been cleared or approved by the Food and Drug Administration. The FDA has determined that such clearance or approval is not necessary.Atypical pANCA Negative NegativeCommentsPattern is not suggestive of Inflammatory Bowel Disease __ TESTING PERFORMED AT [facility]. ORIGINAL REPORT ON FILE IN LAB CONTAINS ADDITIONAL TEST SITE INFORMATION. Tissue Transglutaminase IgG Ab <2 U/mL 0-5 [facility] Work Phone: Comment on above: Negative 0 - 5 Weak Positive 6 - 9 Positive >9Performed at: [facility] Lab[address] [id number] Director: Seun Christy PhD, Phone: [phone] No Panel Informationon 02-11 Stool Calprotectin 27 ug/g 0-120 [facility] Work Phone: Comment on above: Concentration Interp retation Follow-Up<16 - 50 ug/g Normal None>50 -120 ug/g Borderline Re-evaluate in 4-6 weeks >120 ug/g Abnormal Repeat as clinically indicatedPerformed at: - [facility] [address] [place], [place] [id number] Director: Josefina Longo MD, Phone: [phone] Absolute lymphocyte counton 02-08-2022 Lymphocytes Auto (Unsp spec) [#/Vol] 2.14 10*3/uL 0.83-4.51 [facility] Work Phone: Atypical perinuclear antineu trophil cytoplasmic antibodies measurementon 02-08-2022 Neutrophil cytoplasmic Ab.perinuclear.atypical IF (S) [Titer] <1:20 titer Neg:<1:20 [facility] Work Phone: Comment on above: The atypical pANCA p attern has been observed in asignificant percentage of patients with ulcerative colitis,primary sclerosing cholangitis and autoimmune hepatitis.Performed at: [employer] [address] [id number] Director: Seun Christy PhD, Phone: [phone] Basophil percentageon 2021 Basophil percentage < 0.2 AI 0.0-0.9 [facility] Work Phone: Basophils/100 WBC (Bld) 0.8 % 0-1 [facility] Work Phone: [phone] Bilirubin [Mass/Vol] 0.40 mg/dL 0.20-1.00 [facility] Work Phone: Comment on above: For patients on eltr ombopag therapy, use of Dimension [place] TBIL is not recommended. Chloride [Moles/Vol] 110 mmol/L 98-107 [facility] Work Phone: Eosinophils/100 WBC (Bld) 3.9 % 0-5 [facility] Work Phone: Glucose [Mass/Vol] 97 mg/dL 74-106 [facility] Work Phone: Neutrophils (Bld) [#/Vol] 4.7 10*3/uL 2.0-7.7 [facility] Work Phone: Neutrophils/100 WBC (Bld) 58.8 % 47-70 [facility] Work Phone: Potassium [Moles/Vol] 4.1 mmol/L 3.5-5.1 [facility] Work Phone: Protein [Mass/Vol] 7.1 g/dL 6.4-8.2 [facility] Work Phone: Sodium [Moles/Vol] 142 mmol/L 136-145 [facility] Work Phone: WBC (Bld) [#/Vol] 7.9 10*3/uL 4.4-11.0 [facility] Work Phone: [phone] Blood erythrocytes count (nu mber/volume)on 02-08-2022 RBC (Bld) [#/Vol] 4.46 10*6/uL 4.2-5.4 [facility] Work Phone: Blood hemoglobin measurement (mass/volume)on 02-08-2022 Hemoglobin (Bld) [Mass/Vol] 13.9 g/dL 12.0-15.0 [facility] Work Phone: Blood lymphocytes/100 leukoc yteson 02-08-2022 Lymphocytes/100 WBC (Bld) 27.0 % 19-41 [facility] Work Phone: Blood monocytes/100 leukocyt eson 02-08-2022 Monocytes/100 WBC (Bld) 8.9 % 0-10 [facility] Work Phone: Blood platelet mean volumeon 02-08-2022 Platelet mean volume (Bld) [Entitic vol] 10.5 fL 6.2-12.0 [facility] Work Phone: Determination of erythrocyte mean corpuscular volume (MCV)on 02-08-2022 MCV (RBC) [Entitic vol] 93.5 fL 81-99 [facility] Work Phone: [phone] Erythrocyte sedimentation ra antoine 02-08-2022 ESR (Bld) [Velocity] 1 mm/h [facility] Hematocrit Auto (Bld) [Volum e fraction]on 02-08-2022 Hematocrit (Bld) [Volume fraction] 41.7 % 37-47 [facility] Work Phone: Laboratory - Chemistry and C hemistry - challengeon 02-08-2022 ALP [Catalytic activity/Vol] 78 U/L 45-117 [facility] Work Phone: ALT [Catalytic activity/Vol] 37 U/L 13-56 [facility] Work Phone: CO2 [Moles/Vol] 26.0 mmol/L 21.0-32.0 [facility] Work Phone: Globulin (S) [Mass/Vol] 3.1 g/dL 2.2-4.2 [facility] Work Phone: Urea nitrogen/Creatinine [Mass ratio] 17.8 mg/mg 10-20 [facility] Work Phone: Laboratory - Hematology and Cell countson 02-08-2022 Erythrocyte distribution width (RBC) [Entitic vol] 43.9 fL 35.1-43.9 [facility] Work Phone: Erythrocyte distribution width (RBC) [Ratio] 12.8 % 11.6-14.6 [facility] Work Phone: Immature granulocytes/100 WBC (Bld) 0.600 % 0.0-0.9 [facility] Work Phone: Comment on above: IG% - Immature Granu locytes (promyelocytes, myelocytes and metamyelocytes) > 1% indicates that a LEFT SHIFT is Present. MCH (RBC) [Entitic mass] 31.2 pg 27.0-32.0 [facility] Work Phone: Nucleated RBC/100 WBC (Bld) [Ratio] 0 % 0-5 [facility] Work Phone: MCHC Auto (RBC) [Mass/Vol]on 02-08-2022 MCHC (RBC) [Mass/Vol] 33.3 g/dL 32-36 [facility] Work Phone: No Panel Informationon 02-08 Centromere B Antibody <0.2 AI 0.0-0.9 [facility] Work Phone: Endomysial IgA Antibody Negative Negative [facility] Work Phone: Estimated GFR (MDRD) Amer 69 mL/min >60 [facility] Work Phone: Comment on above: GFR Calc Estimated GFR (MDRD) Non-Af Amer 57 mL/min >60 [facility] Work Phone: Comment on above: Non- GFR Calc SURG NURSE Antibody 0.2 AI 0.0-0.9 [facility] Work Phone: Platelets bldon 02-08-2022 Platelets (Bld) [#/Vol] 213 10*3/uL 150-450 [facility] Work Phone: Serum DNA double strand anti body assay (units/volume)on 02-08-2022 DNA double strand Ab Qn (S) [IU]/mL 0-9 [facility] Work Phone: Comment on above: Negative <5 Equivoca l 5 - 9 Positive >9 Serum IgA measurement (units /volume)on 02-08-2022 IgA Qn (S) 35 mg/dL 64-422 [facility] Work Phone: Comment on above: Result confirmed on concentration. Serum Roxane-1 antibody assay (u nits/volume)on 02-08-2022 Roxane-1 extractable nuclear Ab Qn (S) <0.2 AI 0.0-0.9 [facility] Work Phone: Serum Scl-70 extractable nuc lear antibody assay (units/volume)on 02-08-2022 SCL-70 extractable nuclear Ab Qn (S) <0.2 AI 0.0-0.9 [facility] Work Phone: Serum Barron extractable nucl ear antibody detectionon 02-08-2022 Barron extractable nuclear Ab Ql (S) <0.2 AI 0.0-0.9 [facility] Work Phone: Serum classic neutrophil cyt oplasmic antibody assay (units/volume)on 02-08-2022 Neutrophil cytoplasmic Ab.classic Qn (S) <1:20 titer Neg:<1:20 [facility] Work Phone: Serum or plasma C reactive p rotein measurement (mass/volume)on 02-08-2022 CRP [Mass/Vol] mg/L 0.0-3.0 [facility] Work Phone: Comment on above: C-Reactive Protein ( CRP) provides useful information for thediagnosis, therapy and monitoring of inflammatory processesand associated diseases. For the evaluation of Relative Riskfor Cardiovascular Disease, a High Sensitivity CRP (HSCRP)should be ordered. Serum or plasma albumin amanda urement (mass/volume)on 02-08-2022 Albumin [Mass/Vol] 4.0 g/dL 3.2-5.0 [facility] Work Phone: Serum or plasma albumin/glob ulin mass ratioon 02-08-2022 Albumin/Globulin [Mass ratio] 1.3 {ratio} 0.9-2.4 [facility] Work Phone: Serum or plasma calcium amanda urement (mass/volume)on 02-08-2022 Calcium [Mass/Vol] 9.4 mg/dL 8.5-10.1 [facility] Work Phone: Serum or plasma creatinine m easurement (mass/volume)on 02-08-2022 Creatinine [Mass/Vol] 1.01 mg/dL 0.55-1.02 [facility] Work Phone: Comment on above: The validity of the calculated GFR & GFRAA in patients over 70 years has not been determined. Clinical correlation is essential. Serum or plasma urea nitroge n measurement (mass/volume)on 02-08-2022 Urea nitrogen [Mass/Vol] 18 mg/dL 7-18 [facility] Work Phone: Serum perinuclear neutrophil cytoplasmic antibody titer by immunofluorescenceon 02-08-2022 Neutrophil cytoplasmic Ab.perinuclear IF (S) [Titer] <1:20 titer Neg:<1:20 [facility] Work Phone: Comment on above: The presence of posi tive fluorescence exhibiting P-ANCA orC-ANCA patterns alone is not specific for the diagnosis ofWegener's Granulomatosis (WG) or microscopic polyangiitis.Decisions about treatment should not be based solely onANCA IFA results. The [employer] ANCA Group Consensusrecommends follow up testing of positive sera with both PA-3 and MPO-ANCA enzyme immunoassays. As many as 5% serumsamples are positive only by EIA. Ref. AM J Clin [id number];111:507-513. Serum tissue transglutaminas e IgA antibody assay (units/volume)on 02-08-2022 tTG IgA Qn (S) <2 U/mL 0-3 [facility] Work Phone: Comment on above: Negative 0 - 3 Weak Positive 4 - 10 Positive >10 Tissue Transglutaminase (tTG) has been identified as the endomysial antigen. Studies have demonstr- ated that endomysial IgA antibodies have over 99% specificity for gluten sensitive enteropathy. Thin prep Papanicolaou smear with manual screeningon 02-08-2022 Thin prep Papanicolaou smear with manual screening 16 U/L 15-37 [facility] Work Phone: Thin prep Papanicolaou smear with manual screening 6 5-15 [facility] Work Phone: Thin prep Papanicolaou smear with manual screening 205 U/L 84-246 [facility] Work Phone: No Panel Informationon 12-17 Enteric Bacteriology [facility] Work Phone: MRI/PITUITARY W&WO CONTRAon 08-30-2017 MRI/PITUITARY W&WO CONTRA Name: MARISA FONTAINELILIAN:MRI/PITUITARY W; 08/30/2017 10:02 amINDICATION:ABN TYREL TURCICA SYNDROME.COMPARISON:None. G CLINICIAN:QUENTIN MARTETTTECHNIQUE:High-res olution pre and post gadolinium coronal and sagittal T1 weighted MRIimages through the sella were obtained. High-resolution dynamic coronalimaging immediately following gadolinium administration through the sella wasalso performed. Axial T2 images through the head were also performed. Thepatient received 7 mL of MultiHance gadolinium intravenously.FINDINGS:Th e pituitary gland is normal in overall size and configuration withoutevidence of pituitary macroadenoma. No focal differential in enhancement ofthe pituitary gland is noted to suggest pituitary microadenoma. The pituitaryinfundibulum is in the midline.The suprasellar structures are within normal limits.There is qynl-[id number] brain parenchymal volume loss.There are nonspecific white matter changes within the cerebral hemispheresbilaterally which while nonspecific, given the patient's age, may representsequelae of small vessel ischemic change.There is no midline shift. Basilar cisterns are patent.There is minimal mucosal thickening within scattered ethmoid air cells. Theremaining visualized paranasal sinuses are clear.There is opacification of a few inferior left mastoid air cells.IMPRESSION:The pituitary gland is normal in overall size and configuration withoutevidence of pituitary macroadenoma. No focal differential in enhancement ofthe pituitary gland is noted to suggest pituitary microadenoma.There is kclz-ji-ptlmyiij brain parenchymal volume loss.There are nonspecific white matter changes within the cerebral hemispheresbilaterally which while nonspecific, given the patient's age, may representsequelae of small vessel ischemic change.Dictated by:Electronically Signed by: Brad ReddyElectronically Signed on: 08/30/2017 3:20 PM Normal [facility] Creaton 08-26-2017 Creatinine 1.04 mg/dL Normal 0.60-1.30 [facility] CT/HEAD WITH & WITHOUTon CT/HEAD WITH & WITHOUT ient Name: KEITH FONTAINEIRINEO:CT/HEAD WITH ; 06/25/2017 8:34 amINDICATION:ABNORMAL FINDING ON XRAY. Patient complains of lump on forehead, abnormalfinding on x-ray of sella turcica displaced to the leftCOMPARISON:No prior x-ray or CT at this institution. G CLINICIAN:CONY TAVAREZ:Axial images were obtained through the head prior to and following theintravenous administration of 75 cc of Omnipaque 350..FINDINGS:There is age-appropriate atrophy resulting in mild prominence of theventricles and sulci. There are mild new add areas of decreased attenuationthroughout the white matter which are nonspecific but are commonly associatedwith small vessel ischemic disease. There is no mass effect or midline shift.No acute intracranial hemorrhage is identified. No extra-axial fluidcollections are seen. No intraparenchymal mass lesions are identified. Nopituitary mass is noted. Following the intravenous administration of contrast,no abnormal enhancement is observed. No enhancing mass lesions are identified.Bone windows demonstrate no evidence of an acute calvarial fracture. No masslesions are identified within the scalp. Visible portions of the paranasalsinuses and mastoid air cells appear clear.IMPRESSION:No evidence of an acute intracranial process. Age related findings.Dictated by:Electronically Signed by: Brandon Santosronically Signed on: 06/25/2017 8:44 AM Normal [facility] EP Panel Gastrointestinal pathogens panel ZEENAT+probe (Stl) [facility] Work Phone: Vital Signs Date Time Vital Sign Value Performing Clinician Esteban walden 10-16-2022 10:29040 Body temperature 98.4 [degF] Krislyn Aberegg PA Work Phone: [facility] 10-16-2022 10:29040 Body weight 71.12 kg Krislyn Aberegg PA Work Phone: [facility] 10-16-2022 10:29-0400 Diastolic blood pressure 82 mm[Hg] Krislyn Aberegg PA Work Phone: [facility] 10-16-2022 10:29040 Heart rate 104 /min Krislyn Aberegg PA Work Phone: [facility] 10-16-2022 10:29040 Respiratory rate 18 /min Krislyn Aberegg PA Work Phone: [facility] 10-16-2022 10:290400 SaO2% (BldA) [Mass fraction] 96 % Krislyn Aberegg PA Work Phone: [facility] 10-16-2022 10:29-0400 Systolic blood pressure 132 mm[Hg] Mayela CALRK Work Phone: [facility] 10-11-2022 08:44-0400 Body temperature 97.5 [degF] Dr. Ruth Denise Work Phone: [facility] 10-11-2022 08:44-0400 Diastolic blood pressure 82 mm[Hg] Dr. Ruth Denise Work Phone: [facility] 10-11-2022 08:44-0400 Heart rate 107 /min Dr. Ruth Denise Work Phone: [facility] 10-11-2022 08:44-0400 Respiratory rate 20 /min Dr. Ruth Denise Work Phone: [facility] 10-11-2022 08:44-0400 SaO2% (BldA) [Mass fraction] 97 % Dr. Ruth Denise Work Phone: [facility] 10-11-2022 08:44-0400 Systolic blood pressure 170 mm[Hg] Dr. Ruth Denise Work Phone: [facility] 10-11-2022 07:52-0400 Body height 165.[address] Ruth Denise Work Phone: [facility] 08-30-2022 08:35-0500 Body temperature 97.8 [degF] Dr. Ruth Denise Work Phone: [facility] 08-30-2022 08:35-0500 Diastolic blood pressure 86 mm[Hg] Dr. Ruth Denise Work Phone: [facility] 08-30-2022 08:35-0500 Heart rate 102 /min Dr. Ruth Denise Work Phone: [facility] 08-30-2022 08:35-0500 Respiratory rate 18 /min Dr. Ruth Denise Work Phone: [facility] 08-30-2022 08:35-0500 SaO2% (BldA) [Mass fraction] 98 % Dr. Ruth Denise Work Phone: [facility] 08-30-2022 08:35-0500 Systolic blood pressure 144 mm[Hg] Dr. Ruth Denise Work Phone: [facility] 04-05-2022 09:23-0400 Body height 165.[address] Ruth Denise Work Phone: [facility] Work Phone: 04-05-2022 09:23-0400 Body mass index (BMI) [Ratio] 25.2 kg/m2 Dr. Ruth Denise Work Phone: [facility] Work Phone: 04-05-2022 09:23-0400 Body weight 68.[address] Ruth Denise Work Phone: [facility] Work Phone: 04-05-2022 09:23-0400 Diastolic blood pressure 76 mm[Hg] Dr. Ruth Denise Work Phone: [facility] Work Phone: 04-05-2022 09:23-0400 Heart rate 86 /min Dr. Ruth Denise Work Phone: [facility] Work Phone: 04-05-2022 09:23-0400 SaO2% (BldA) [Mass fraction] 96 % Dr. Ruth Denise Work Phone: [facility] Work Phone: 04-05-2022 09:23-0400 Systolic blood pressure 164 mm[Hg] Dr. Ruth Denise Work Phone: [facility] Work Phone: 03-25-2022 12:15-0400 Body temperature 97.2 [degF] Dr. Ruth Denise Work Phone: [facility] Work Phone: 03-25-2022 12:15-0400 Heart rate 69 /min Dr. Ruth Denise Work Phone: [facility] Work Phone: 03-25-2022 12:15-0400 Respiratory rate 16 /min Dr. Ruth Denise Work Phone: [facility] Work Phone: 03-25-2022 12:15-0400 SaO2% (BldA) [Mass fraction] 99 % Dr. Ruth Denise Work Phone: [facility] Work Phone: 03-25-2022 12:10-0400 Diastolic blood pressure 60 mm[Hg] Dr. Ruth Denise Work Phone: [facility] Work Phone: 03-25-2022 12:10-0400 Systolic blood pressure 115 mm[Hg] Dr. Ruth Denise Work Phone: [facility] Work Phone: 03-25-2022 10:47-0400 Body height 165.[address] Ruth Denise Work Phone: [facility] Work Phone: 03-25-2022 10:47-0400 Body mass index (BMI) [Ratio] 24.2 kg/m2 Dr. Ruth Denise Work Phone: [facility] Work Phone: 03-25-2022 10:47-0400 Body weight [address] Ruth Denise Work Phone: [facility] Work Phone: 02-08-2022 09:35-0400 Body height 165.[address] Ruth Denise Work Phone: [facility] Work Phone: 02-08-2022 09:35-0400 Body mass index (BMI) [Ratio] 25.4 kg/m2 Dr. Ruth Denise Work Phone: [facility] Work Phone: 02-08-2022 09:35-0400 Body weight 69.[address] Ruth Denise Work Phone: [facility] Work Phone: 02-08-2022 09:35-0400 Diastolic blood pressure 77 mm[Hg] Dr. Ruth Denise Work Phone: [facility] Work Phone: 02-08-2022 09:35-0400 Heart rate 90 /min Dr. Ruth Denise Work Phone: [facility] Work Phone: 02-08-2022 09:35-0400 SaO2% (BldA) [Mass fraction] 96 % Dr. Ruth Denise Work Phone: [facility] Work Phone: 02-08-2022 09:35-0400 Systolic blood pressure 160 mm[Hg] Dr. Ruth Denise Work Phone: [facility] Work Phone: 12-11-2021 11:12-0400 Body temperature 98.2 [degF] Dr. Ruth Denise Work Phone: [facility] Work Phone: 12-11-2021 11:12-0400 Diastolic blood pressure 80 mm[Hg] Dr. Ruth Denise Work Phone: [facility] Work Phone: 12-11-2021 11:12-0400 Heart rate 104 /min Dr. Ruth Denise Work Phone: [facility] Work Phone: 12-11-2021 11:12-0400 Respiratory rate 16 /min Dr. Ruth Denise Work Phone: [facility] Work Phone: 12-11-2021 11:12-0400 SaO2% (BldA) [Mass fraction] 97 % Dr. Ruth Denise Work Phone: [facility] Work Phone: 12-11-2021 11:12-0400 Systolic blood pressure 146 mm[Hg] Dr. Ruth Denise Work Phone: [facility] Work Phone: 12-11-2021 11:12-0400 Body temperature 98.2 [degF] Dr. Ruth Denise Work Phone: [facility] Work Phone: 12-11-2021 11:12-0400 Diastolic blood pressure 80 mm[Hg] Dr. Ruth Denise Work Phone: [facility] Work Phone: 12-11-2021 11:12-0400 Heart rate 104 /min Dr. Ruth Denise Work Phone: [facility] Work Phone: 12-11-2021 11:12-0400 Respiratory rate 16 /min Dr. Ruth Denise Work Phone: [facility] Work Phone: 12-11-2021 11:12-0400 SaO2% (BldA) [Mass fraction] 97 % Dr. Ruth Denise Work Phone: [facility] Work Phone: 12-11-2021 11:12-0400 Systolic blood pressure 146 mm[Hg] Dr. Ruth Denise Work Phone: [facility] Work Phone: 09-24-2021 09:06-0400 Body temperature 98 [degF] Dr. Ruth Denise Work Phone: [facility] Work Phone: 09-24-2021 09:06-0400 Diastolic blood pressure 86 mm[Hg] Dr. Ruth Denise Work Phone: [facility] Work Phone: 09-24-2021 09:06-0400 Heart rate 103 /min Dr. Ruth Denise Work Phone: [facility] Work Phone: 09-24-2021 09:06-0400 Respiratory rate 20 /min Dr. Ruth Denise Work Phone: [facility] Work Phone: 09-24-2021 09:06-0400 SaO2% (BldA) [Mass fraction] 98 % Dr. Ruth Denise Work Phone: [facility] Work Phone: 09-24-2021 09:06-0400 Systolic blood pressure 150 mm[Hg] Dr. Ruth Denise Work Phone: [facility] Work Phone: Encounters Encounter Date Encounter Type Care Provider Facility Start: 07-10-2023 End: 07-10-2023 ambulatory Win CLARK Facility:[facility] Start: 06-27-2023 End: 06-27-2023 ambulatory Mario Gonzalez Facility:[facility] Start: 06-16-2023 End: 06-16-2023 ambulatory Abel CLARK Facility:[facility] Start: 12-17-2022 End: 12-17-[address] Ruth Denise Work Phone: [facility] Work Phone: Start: 12-17-2022 End: 12-17-[address] [facility] Start: 11-12-2022 End: 11-12-[address] [facility] Start: 11-12-2022 End: 11-12-[address] Ruth Denise Work Phone: [facility] Work Phone: Start: 10-16-2022 End: 10-16-2022 ambulatory Facility:[facility] Start: 10-16-2022 End: 10-16-2022 Subsequent hospital visit by physician [facility] Work Phone: Radiology Comment on above: Acute cough [R05.1] Start: 10-16-2022 End: 10-16-2022 Patient encounter procedure Mayela CLARK Work Phone: [facility] Comment on above: Acute cough (Primary Dx); Bronchitis Start: 10-11-2022 End: 10-11-2022 ambulatory Erin Lauren NP Facility:[facility] Start: 10-11-2022 End: 10-11-[address] Ruth Denise Work Phone: [facility] Start: 08-30-2022 End: 08-30-2022 ambulatory Ruth Denise Facility:[facility] Start: 08-30-2022 End: 08-30-[address] Ruth Denise Work Phone: [facility] Start: 06-17-2022 End: 06-17-[address] Ruth Denise Work Phone: [facility] Work Phone: Start: 06-17-2022 End: 06-17-[address] Ruth Denise Work Phone: [facility]-Laboratory, [place] Start: 04-05-2022 End: 04-05-[address] Ruth Denise Work Phone: [facility] Gastroenterology Start: 03-25-2022 Non-patient / Non-visit Dr. Ruth Denise Work Phone: [facility] Start: 03-25-2022 End: 03-25-2022 Admission to same day surgery center Dr. Ruth Denise Work Phone: [facility]-Endoscopy Start: 03-25-2022 End: 03-25-[address] Ruth Denise Work Phone: [facility] Work Phone: Start: 02-25-2022 End: 02-25-[address] Ruth Denise Work Phone: [facility]-Laboratory Start: 02-13-2022 End: 02-13-[address] Ruth Denise Work Phone: [facility] Start: 02-11-2022 End: 02-11-[address] [facility] Start: 02-08-2022 End: 02-08-[address] [facility] Start: 02-08-2022 End: 02-08-[address] Ruth Denise Work Phone: [facility] Gastroenterology Start: 12-17-2021 End: 12-17-[address] Ruth Denise Work Phone: [facility]-Laboratory, Specimen Start: 12-11-2021 End: 12-11-[address] Ruth Denise Work Phone: [facility] Start: 10-11-2021 Non-patient / Non-visit Dr. Ruth Denise Work Phone: [facility] Start: 10-11-2021 End: 10-11-[address] Ruth Denise Work Phone: [facility]-Pulmonary Services/Neurology Start: 09-24-2021 End: 09-24-[address] Ruth Denise Work Phone: [facility] Start: 08-29-2021 End: 08-29-[address] Ruth Denise Work Phone: [facility]-Outpatient Breast Imaging Start: 08-30-2017 End: 08-30-2017 Ambulatory CON[facility] Start: 08-30-2017 Ambulatory Facility:[id number] Start: 08-26-2017 End: 08-26-2017 Ambulatory QUENTIN FONTENOT [facility] Start: 08-26-2017 Ambulatory Facility:[id number] Start: 06-25-2017 End: 06-25-2017 Ambulatory CONY Gaitan [facility] Start: 06-25-2017 Ambulatory Facility:[id number] Procedures Date Procedure Procedure Detail Performing Clinician Start: 11-12-2022 CT of chest without contrast Dr. Ruth Denise Work Phone: Start: 10-16-2022 Radiologic exam ches t 2 views Mayela CLARK Work Phone: Start: 03-25-[address] Ruth Denise Work Phone: Start: 02-13-2022 Computed tomography of abdomen and pelvis with contrast Dr. Ruth Denise Work Phone: Start: 12-17-2021 End: 12-17-[address] Ruth Denise Work Phone: Start: 12-17-[address] Zackery Denise Work Phone: Start: 12-17-2021 End: 12-17-[address] Ruth beltran Work Phone: Start: 09-24-2021 Plain chest X-ray Dr. Jasmyn Denise Work Phone: Start: 08-29-2021 Screening mammography Mars Denise Work Phone: Enteric Bacteriology Dr. Ayla Denise Work Phone: [facility] [place] parasites identification Dr. Ruth Denise Work Phone: Plan of Treatment Date Care Activity Detail Author Start: 03-14-2024 Covid-19 Vaccine ( season) Covid-19 Vaccine ( season) [facility] Start: 03-14-2024 Influenza vaccination Influenza Vaccine (#1) [facility] Start: 07-14-2023 Advance Directive Discussion Advance Directive Discussion [facility] Start: 03-14-2023 Influenza vaccination INFLUENZA (Season Ended) [facility] Start: 07-14-2022 ADVANCE DIRECTIVE DISCUSSION ADVANCE DIRECTIVE DISCUSSION [facility] Start: 07-14-2022 DEPRESSION ASSESSMENT DEPRESSION ASSESSMENT [facility] Start: 03-25-2022 Colonoscopy w/biopsy single/multiple COLONOSCOPY AND BIOPSY [facility] Work Phone: Start: 03-25-2022 Egd insert guide wire dilator passage esophagus EGD GUIDE WIRE INSERTION [facility] Work Phone: Start: 03-25-2022 Egd transoral biopsy single/multiple EGD BIOPSY SINGLE/MULTIPLE [facility] Work Phone: Start: 03-25-2022 Patient discharge [facility] Work Phone: Start: 02-11-2022 Protein measurement [facility] Work Phone: Start: 2020 RSV Vaccine (1 - 1-dose 75+ series) RSV Vaccine (1 - 1-dose 75+ series) [facility] Start: 2010 BONE DENSITY BONE DENSITY [facility] Start: 2010 Pneumococcal Vaccine: 65+ (1 of 1 - PCV) Pneumococcal Vaccine: 65+ (1 of 1 - PCV) [facility] Start: 2010 PNEUMOCOCCAL: 65+ (1 - PCV) PNEUMOCOCCAL: 65+ (1 - PCV) [facility] Start: 2010 Screening for osteoporosis Bone Density Screening [facility] Start: 10-19-1995 SHINGRIX VACCINE (1 of 2) SHINGRIX VACCINE (1 of 2) [facility] Start: 1990 DIABETES SCREEN DIABETES SCREEN [facility] Start: 1990 Diabetes Screening Diabetes Screening [facility] Start: 1964 Urine microalbumin profile [facility] Start: 10-19-1963 Anxiety Screening Anxiety Screening [facility] Start: 10-19-1963 Depression Screening Depression Screening [facility] Start: 10-19-1963 HEPATITIS C SCREENING HEPATITIS C SCREENING [facility] Start: 10-19-1963 Hepatitis C screening Hepatitis C Screening [facility] Start: [birth year]-19-1946 COVID-19 VACCINE (#1) COVID-19 VACCINE (#1) [facility] Gastrointestinal pat hogens panel - Stool by ZEENAT with probe detection [facility] Work Phone: Patient referral [facility] Work Phone: Procedure [facility] Work Phone: Payers Date Payer Category Payer Private Health Insurance [id number] 2022 Medicare [id number] 2022 Self-pay [id number] 2022 [facility] [id number] 2022 Medicare [id number] Medicare [id number] Unknown [id number] Unknown [id number] Unknown [id number] [id number] Unknown [id number] [id number] Unknown [id number] [id number] Unknown [id number] [id number] Unknown [id number] [id number] Social History Date Type Detail Facility Start: 12-11-2021 End: 10-11-2022 Tobacco smoking status MAIS Unknown if ever smoked [facility] Start: 1945 Sex Assigned At Female [facility] Start: 10-16-2022 Tobacco smoking stat [facility] Never smoked tobacco [facility] Start: 10-16-2022 Tobacco use and exposure Smokeless tobacco non-user [facility] Start: 1945 Sex Assigned At Not on file [facility] Start: 10-16-2022 History of Social function [facility] Start: 10-16-2022 Tobacco use panel [facility] Goals Date Patient Goal Desired Activity /State Mental Status Date Assessment Result Facility 03-25-2022 Cognitive function Level Of Cons ciousness Appropriate;Drowsy [facility] Work Phone: 03-25-2022 Cognitive function Voice/Name [facility] Work Phone: Clinical Notes 10-16-2022 Rachel Patton RT(R) - 10/16/2022 10:50 AM EDUARDO Renee - 10/16/2022 10:37 AM EDT Note Date & Type Note Facility 10-16-2022 Note HNO ID: [id number] Author: RT Bear(Khloe) Service: Nuclear Medicine Author Type: Technologist Type: Progress Notes Filed: 10/16/2022 11:07 AM Note Text: Radiology Service Progress Note PATIENT NAME: Donavon Fontaine DATE OF SERVICE: October 16, 2022 TIME: 11:00 AM PATIENT IDENTITY VERIFICATION COMPLETED USING TWO (2) IDENTIFIERS: Name and Date of confirmed by patient verbally. FALL SCREENING: Has the patient had 2 falls in the last year or 1 fall with injury or currently using an Ambulatory Assistive Device (Walker, Cane, Wheelchair, Crutches, etc.)? No PATIENT GENDER DATA: Female. status: : No status: NO. PATIENT RELEVANT IMPLANT DATA REVIEWED: Not Applicable RADIOLOGY DEPARTMENT: General X-ray: Exam(s) Completed: Chest X-Ray PERIPHERAL IV DATA: Not applicable SIGNED BY: RT Bear(R) October 16, 2022 11:00 AM [facility] 10-16-2022 Note HNO ID: [id number] Author: EDUARDO Crowe Service: ? Author Type: Physician Aboriginal Education Teacher Type: Progress Notes Filed: 10/16/2022 11:16 AM Note Text: This note was created using Hapzingriter. Subjective Donavon Fontaine is a 76 year old female. HPI 76-year-old female presents for cough, congestion x5 days. Patient states she started getting a cough on Friday. No shortness of breath. She does feel like she has some wheezing. She was seen [facility] and diagnosed with bronchitis. She was started on azithromycin, Tessalon Perles, albuterol inhaler. She has also been taking Mucinex. She states that she is still having symptoms of cough. She is coughing up a little bit of phlegm. She finished the azithromycin. She states that she had COVID about 5 weeks ago, so was not tested for COVID or flu. She has not had any fevers. No vomiting or diarrhea. States that she was told in the past that she may have COPD from her father smoking around her. She does use inhalers at home. She has no chest pain. History reviewed. No pertinent past medical history. No past surgical history on file. ALLERGIES Alendronate and Demerol [Meperidine] MEDICATIONS albuterol HFA (PROVENTIL HFA, VENTOLIN HFA) 90 mcg/actuation inhaler Inhale as instructed. azithromycin (ZITHROMAX) 250 mg tablet benzonatate (TESSALON PERLE) 100 mg capsule Take by mouth. dexAMETHasone (DECADRON) 6 mg tablet levothyroxine (SYNTHROID) 75 mcg tablet simvastatin (ZOCOR) 20 mg tablet Take 20 mg by mouth. VITAMIN B COMPLEX ORAL Take by mouth. No family history on file. Social History Tobacco Use Smoking status: Never Smokeless tobacco: Never Review of Systems Constitutional: Negative for chills and fever. HENT: Positive for congestion. Negative for ear pain and sore throat. Respiratory: Positive for cough and wheezing. Negative for shortness of breath. Cardiovascular: Negative for chest pain. Gastrointestinal: Negative for diarrhea and vomiting. Objective BP 132/82 Pulse 104 Temp 36.9 ?C (98.4 ?F) (Tympanic) Resp 18 Wt 71.1 kg (156 lb 12.8 oz) SpO2 96% Physical Exam Vitals and nursing note reviewed. Constitutional: General: She is not in acute distress. Appearance: Normal appearance. She is not toxic-appearing. HENT: Right Ear: Tympanic membrane and ear canal normal. Left Ear: Tympanic membrane and ear canal normal. Nose: Nose normal. Mouth/Throat: Mouth: Mucous membranes are moist. Pharynx: No oropharyngeal exudate or posterior oropharyngeal erythema. Eyes: Conjunctiva/sclera: Conjunctivae normal. Cardiovascular: Rate and Rhythm: Normal rate and regular rhythm. Pulmonary: Effort: Pulmonary effort is normal. Breath sounds: Wheezing present. Neurological: Mental Status: She is alert. Assessment and Plan ASSESSMENT/PLAN: 1. Acute cough - ICD9: 786.2, ICD10: R05.1 (primary diagnosis) - XR CHEST 2V FRONTAL/LA -Chest x-ray reveals no acute findings 2. Bronchitis - ICD9: 490, ICD10: J40 -Patient has already completed azithromycin, has inhaler, and is prescribed Tessalon Perles. -Rx for prednisone as she is wheezing. States has history of COPD. -Declines COVID/flu swab. Just had COVID 5 weeks ago. -Recommend follow-up with PCP next week if no improvement. Diagnosis and treatment plan were discussed and questions were answered to the patient's satisfaction. Pt acknowledged understanding of concepts and follow up plan. Specific signs and symptoms that would indicate the need for higher level of care were discussed in detail warranting prompt ER evaluation. EDUARDO Crowe [facility] 10-16-2022 History of Present illness Narrative Radiology Service Progress Note PATIENT NAME: Donavon Fontaine DATE OF SERVICE: October 16, 2022 TIME: 11:00 AM PATIENT IDENTITY VERIFICATION COMPLETED USING TWO (2) IDENTIFIERS: Name and Date of confirmed by patient verbally. FALL SCREENING: Has the patient had 2 falls in the last year or 1 fall with injury or currently using an Ambulatory Assistive Device (Walker, Cane, Wheelchair, Crutches, etc.)? No PATIENT GENDER DATA: Female. status: : No status: NO. PATIENT RELEVANT IMPLANT DATA REVIEWED: Not Applicable RADIOLOGY DEPARTMENT: General X-ray: Exam(s) Completed: Chest X-Ray PERIPHERAL IV DATA: Not applicable SIGNED BY: RT Bear(R) October 16, 2022 11:00 AM documented in this encounter [facility] 10-16-2022 History of Present illness Narrative This note was created using NoteWriter. Subjective Donavon Fontaine is a 76 year old female. HPI 76-year-old female presents for cough, congestion x5 days. Patient states she started getting a cough on Friday. No shortness of breath. She does feel like she has some wheezing. She was seen at [facility] in our clinic and diagnosed with bronchitis. She was started on azithromycin, Tessalon Perles, albuterol inhaler. She has also been taking Mucinex. She states that she is still having symptoms of cough. She is coughing up a little bit of phlegm. She finished the azithromycin. She states that she had COVID about 5 weeks ago, so was not tested for COVID or flu. She has not had any fevers. No vomiting or diarrhea. States that she was told in the past that she may have COPD from her father smoking around her. She does use inhalers at home. She has no chest pain. History reviewed. No pertinent past medical history. No past surgical history on file. ALLERGIES Alendronate and Demerol [Meperidine] MEDICATIONS albuterol HFA (PROVENTIL HFA, VENTOLIN HFA) 90 mcg/actuation inhaler Inhale as instructed. azithromycin (ZITHROMAX) 250 mg tablet benzonatate (TESSALON PERLE) 100 mg capsule Take by mouth. dexAMETHasone (DECADRON) 6 mg tablet levothyroxine (SYNTHROID) 75 mcg tablet simvastatin (ZOCOR) 20 mg tablet Take 20 mg by mouth. VITAMIN B COMPLEX ORAL Take by mouth. No family history on file. Social History Tobacco Use Smoking status: Never Smokeless tobacco: Never Review of Systems Constitutional: Negative for chills and fever. HENT: Positive for congestion. Negative for ear pain and sore throat. Respiratory: Positive for cough and wheezing. Negative for shortness of breath. Cardiovascular: Negative for chest pain. Gastrointestinal: Negative for diarrhea and vomiting. Objective BP 132/82 Pulse 104 Temp 36.9 C (98.4 F) (Tympanic) Resp 18 Wt 71.1 kg (156 lb 12.8 oz) SpO2 96% Physical Exam Vitals and nursing note reviewed. Constitutional: General: She is not in acute distress. Appearance: Normal appearance. She is not toxic-appearing. HENT: Right Ear: Tympanic membrane and ear canal normal. Left Ear: Tympanic membrane and ear canal normal. Nose: Nose normal. Mouth/Throat: Mouth: Mucous membranes are moist. Pharynx: No oropharyngeal exudate or posterior oropharyngeal erythema. Eyes: Conjunctiva/sclera: Conjunctivae normal. Cardiovascular: Rate and Rhythm: Normal rate and regular rhythm. Pulmonary: Effort: Pulmonary effort is normal. Breath sounds: Wheezing present. Neurological: Mental Status: She is alert. Assessment and Plan ASSESSMENT/PLAN: 1. Acute cough - ICD9: 786.2, ICD10: R05.1 (primary diagnosis) - XR CHEST 2V FRONTAL/LA -Chest x-ray reveals no acute findings 2. Bronchitis - ICD9: 490, ICD10: J40 -Patient has already completed azithromycin, has inhaler, and is prescribed Tessalon Perles. -Rx for prednisone as she is wheezing. States has history of COPD. -Declines COVID/flu swab. Just had COVID 5 weeks ago. -Recommend follow-up with PCP next week if no improvement. Diagnosis and treatment plan were discussed and questions were answered to the patient's satisfaction. Pt acknowledged understanding of concepts and follow up plan. Specific signs and symptoms that would indicate the need for higher level of care were discussed in detail warranting prompt ER evaluation. EDUARDO Crowe documented in this encounter [facility] Evaluation note Diagnosis Onset Date Acute bronchitis, unspecified acute Encounter for screening for COVID-19 acute Gastroenteritis acute [facility] Work Phone: Evaluation note* Diagnosis Onset Date Resolution Status Gastroenteritis acute Diarrhea noneactive Diarrhea acute LLQ abdominal pain acute [facility] Work Phone: Evaluation note* Diagnosis Onset Date Resolution Status Hiatal hernia acute Rectal prolapse acute [facility] Work Phone: Evaluation note* Diagnosis Acute cough- Primary Bronchitis Bronchitis, not specified as acute or chronic [facility] Diagnosis Onset Date Resolution Status COVID-19 acute Acute bronchitis, unspecified acute Cough acute [facility] Work Phone: Evaluation note* Diagnosis Acute cough [facility]* Diagnostic Procedure Only (Routine) - Denied Specialty Diagnoses / Procedures Referred By Contac t Referred To Contact Radiology / [facility] Diagnoses Dx: Acute cough [R05.1 Procedures XR CHEST Venkat Valenzuela PA [address] [place] [address] [facility] [address] [place] [address] Referral ID Status Reason Start Date Expiration Date Visits Re quested Visits Authorized [id number] Denied 10/16/2022 01/14/2023 1 0 [facility] Summary Purpose Family History Relationship Condition Age at Onset Recorded Date/T frank father Alcoholism Unknown Complication of anesthesia Unknown Angina pectoris Unknown Diabetes mellitus Unknown Myocardial infarction Unknown Cardiac disease Unknown Hypertension Unknown High blood cholesterol Unknown brother Alcoholism Unknown mother Angina pectoris Unknown Arthritis Unknown grandmother Angina pectoris Unknown Cerebrovascular accident (CVA) Unknown grandfather Angina pectoris Unknown Advance Directives Advance Directive Response Recorded Date/ Time Living Will Yes June 16 6:29pm Power of Tipple Mechanic Yes June 16, 2021 6:29pm Advance Directive Response Recorded Date/ Time Name of Medical Power of Tipple Mechanic son/dtr-in-law March 20, 2022 9:22am Living Will Yes March 20 9:22am Power of Tipple Mechanic Yes March 20, 2022 9:22am Advance Directive Response Recorded Date/ Time Name of Medical Power of Tipple Mechanic son/dtr-in-law March 20, 2022 8:22am Living Will Yes March 20 8:22am Power of Tipple Mechanic Yes March 20, 2022 8:22am Advance Directive Response Recorded Date/ Time Living Will Yes October 11, 2022 7:52am Power of Tipple Mechanic Yes October 11 7:52am Chief Complaint and Reason for Visit Chief Complaint SCREENING CONCERN W/ BRONCHITIS/ SHORT OF BREATH xray SOB Shortness of breath Diarrhea Reason for Visit Acute bronchitis, un specified Encounter for screening for COVID-19 Gastroenteritis Chief Complaint Diarrhea Consult E ORDER EORDER LLQ PAIN Reason for Visit Gastroenteritis Diarrhea Diarrhea LLQ abdominal pain Chief Complaint Diarrhea Consult E ORDER EORDER LLQ PAIN E ORDERS Reason for Visit Gastroenteritis Diarrhea Diarrhea LLQ abdominal pain Chief Complaint 8 WK FU Reason for Visit Hiatal hernia Rectal prolapse Chief Complaint COUGH, SORE THROAT, HEADACHE/EXPOSURE TO COVID Bronchitis CHRONIC COUGH Reason for Visit COVID-19 Acute bronchitis, unspecified Cough Additional Source Comments INFORMATION SOURCE (unrecogn ized section and content) DATE CREATED AUTHOR 01/02/2018 [facility] DATE CREATED AUTHOR AUTHOR'S ORGANIZ ATION 01/02/2018 [facility] DATE CREATED AUTHOR AUTHOR'S ORGANIZ ATION 2022 [facility] DATE CREATED AUTHOR AUTHOR'S ORGANIZ ATION [facility] Goals (unrecognized section and content) Goals may be documented in a n alternate sectionGoals may be documented in an alternate sectionGoals may be documented in an alternate sectionGoals may be documented in an alternate sectionGoals may be documented in an alternate sectionGoals may be documented in an alternate sectionGoals may be documented in an alternate section Source Comments (unrecognize d section and content) In the event this informatio n is protected by the Federal Confidentiality of Alcohol and Drug Abuse Patient Records regulations: The Federal rules restrict any use of the information to criminally investigate or prosecute any alcohol or drug abuse patient.[facility] the event this information is protected by the Federal Confidentiality of Alcohol and Drug Abuse Patient Records regulations: The Federal rules restrict any use of the information to criminally investigate or prosecute any alcohol or drug abuse patient.[facility] Reason for Visit (unrecogniz ed section and content) Reason Comments Cough Cough and congestion x 5 days Care Teams (unrecognized sec tion and content) Team Status: Active Member Role Status Dates Dr. Ruth Denise MD Family Provider Active Dr. Ruth Denise MD Primary Care Provider Active Team Status: Inactive Member Role Status Dates Dr. Ruth Denise MD Primary Care Provider, Tj winchester Provider Active Win [place], [place] Attending Provider Active Team Status: Inactive Member Role Status Dates Dr. Ruth Denise MD Primary Care Provider, Referrin g Provider Active Erin Lauren HAND CIGAR MAKER, HAND CIGAR MAKER-C Attending Provider Active Team Status: Inactive Member Role Status Dates Dr. Ruth Denise MD Primary Care Prov ider, Attending Provider, Referring Provider Active FOR RECORDS PERTAINING TO PATIENTS WHO ARE OR HAVE BEEN ENROLLED IN A CHEMICAL DEPENDENCY/SUBSTANCEABUSE PROGRAM, SOME INFORMATION MAY BE OMITTED. This clinical summary was aggregated from multiple sources. Caution should be exercised in using it in the provision of clinical care. This summary normalizes information from multiple sources, and as a consequence, information in this document may materially change the coding, format and clinical context of patient data. In addition, data may be omitted in some cases. CLINICAL DECISIONS SHOULD BE BASED ON THE PRIMARY CLINICAL RECORDS. [facility] [employer], [facility]. provides no warranty or guarantee of the accuracy or completeness of information in this document.
[2024-12-22 10:45] LABS: ALB/GLOB Ratio 2.1 RATIO (0.9-2.4); AST(SGOT) 30 U/L (<=31); Alanine Aminotransfer ALT/SGPT 49 U/L (<=34); Albumin, Serum 4.6 g/dL (3.4-4.8); Alkaline Phosphatase 79 U/L (35-104); Anion Gap 13 (5-15); BUN 20 mg/dL (4-19); BUN/Creat Ratio 18.5 RATIO (10-20); Calcium,Total 9.7 mg/dL (7.6-11.0); Chloride 101 mmol/L (98-108); Creatinine, Serum 1.06 mg/dL (0.70-1.20); EST Glomerular Filtration Rate 53 (>60); Globulin 2.2 g/dL (2.2-4.2); Glucose 111 mg/dL (70-99); Potassium 4.4 mmol/L (3.3-5.1); Protein, Total 6.8 g/dL (5.9-8.4); Sodium Level 135 mmol/L (133-145); Total Bilirubin 0.55 mg/dL (0.00-1.30)
[2024-12-22 11:02] LABS: Cholesterol 191 mg/dL (<=200); High Density Lipoprotein 59 mg/dL; Low Density Lipoprotein Calc. 97 mg/dL; Triglycerides 179 mg/dL; Very Low Density Lipoprotein 36 mg/dL (5-40); cholesterol:hdl ratio screen 3.25
[2024-12-22 11:57] LABS: Protein, Urine (Random) < 6.0 mg/dL (0.0-12.0); Protein:Creat Ratio UNABLE TO CALCULATE mg/g CRE (0-200)
== END | disposition home or self-care (01) ==
PROVIDERS: PCP Family Medicine; Referring Provider Family Medicine; Visit Provider Family Medicine
DX: E03.9 Hypothyroidism, unspecified (principal); N18.30 Chronic kidney disease, stage 3 unspecified; E78.5 Hyperlipidemia, unspecified
CPT/HCPCS: 36415; 80053; 80061; 82570; 84156; 84443; 85025

== ENCOUNTER → 2025-03-31 | Outpatient (CLI) | payer MEDICARE, OTHER, SELFPAY | END | disposition home or self-care (01) | LOC: BFHLAB 09:56 | PROVIDERS: PCP Family Medicine; Visit Provider Family Medicine | DX: E03.9 Hypothyroidism, unspecified (principal) | CPT/HCPCS: 36415; 84439; 84443 ==